=== PATIENT | female | born 1995 | race African-American/Black ===

== ENCOUNTER 2017-03-09 05:59 | Emergency (ER) | payer BC, OTHER ==
[2017-03-09 06:55] LABS: Bilirubin Negative (Negative); Blood, Urine Negative (Negative); Glucose, Urine (Dipstick) Negative (Negative); Ketone, Urine Negative (Negative); Nitrite Negative (Negative); Protein, Urine (Dipstick) Negative (Neg-Trace)
[2017-03-09 06:58] LABS: Bacteria/HPF Rare-Few HPF (None Seen); Hyaline Casts/LPF 0-3 HYALINE CAST LPF (0-3 Hyaline); RBC/HPF 0-3 HPF (0-3); Squamous Epithelial 0-3 HPF (0-3); WBC/HPF 21-50 HPF (0-3)
[2017-03-09 07:31] LABS: #Basophils 0.1 thou/uL (0.0-0.2); #Eosinphils 0.1 thou/uL (0.0-0.7); #Monocytes 0.5 thou/uL (0.11-0.59); #Neutrophils 4.9 thou/uL (1.40-6.50); %Basophils 1.3 % (0.0-1.0); %Lymphocytes 26.1 % (28.0-48.0); %Monocytes 6.2 % (0.0-4.0); Mean Platelet Volume 5.7 fL (7.4-10.4); Red Blood Cell (RBC) Count 4.32 mill/uL (4.00-5.20); White Blood Cell (WBC) Count 7.5 thou/uL (4.8-10.8)
[2017-03-09 08:04] LABS: ALT (SGPT) 9 U/L (8-55); AST (SGOT) 13 U/L (5-34); Alkaline Phosphatase 88 U/L (40-150); Anion Gap 11 mmol/L (10-20); BUN (Urea Nitrogen) 8 mg/dL (7.0-18.7); Bilirubin, Total 1.2 mg/dL (0.2-1.2); Calc. Creatinine Clearance 0 mL/min (70-130); Calcium 9.4 mg/dL (7.8-10.44); Carbon Dioxide 27 mmol/L (22-29); Chloride 106 mmol/L (98-107); Estimated GFR-MDRD Greater than 90; Globulin 3.4 g/dL (2.4-3.5); Protein, Total 7.1 g/dL (6.0-8.3)
--- NOTE | 2017-03-09 09:34 | CT ---
CT ABDOMEN AND PELVIS WITHOUT CONTRAST: Date: 03/09/17 COMPARISON: 06/21/13. HISTORY: Sharp right-sided flank pain for 3 days. TECHNIQUE: Serial axial CT imaging is obtained at 5 mm intervals from lung bases through pubic symphysis without contrast. Coronal reformatted imaging obtained. FINDINGS: The lack of contrast media limits assessment of the viscera, bowel, vascular structures, and for lymp hadenopathy. The imaged lung bases are grossly unremarkable. No free intraperitoneal air is noted. The liver, spleen, gallbladder, pancreas, and adrenal glands are grossly unremarkable. The left kidne y is nonvisualized, consistent with provided history of agenesis. The right kidney is enlarged, likely compensatory in nature, unchanged when compared to the 08/21/13 exam. There is no evidence for obstructive uropathy on the right. The uterus appears quite enlarged, extending into the left lower quadrant, measuring at least 11.0 cm in craniocaudal dimension, a new finding. No evidence for bowel obstruction. The patient reports a history of prior appendectomy. Imaged osseous structures demonstrate no acute findings. There is small volume fluid surrounding the urinary bladder. There is small volume free fluid in the pelvic cul-de-sac. Urinary bladder wall is mildly thickened. There is scoliotic curvature of the imaged thoracolumbar spine. IMPRESSION: 1. Mildly thickened urinary bladder wall with stranding of the adjacent fat. This is suspicious for possible cystitis. No evidence for obstructive uropathy. 2. Enlarged uterus suggesting a state. Results called to Dr. Santiago at 0910 hours on 03/09/17. CODE CR. POS: [facility]
== END 2017-03-09 09:52 | disposition home or self-care (01) ==
LOC: ERS 05:59
DX: N39.0 Urinary tract infection, site not specified (principal); F31.9 Bipolar disorder, unspecified; Z79.899 Other long term (current) drug therapy
CPT/HCPCS: 36415; 74176; 80053; 81003; 81015; 81025; 85025; 87077; 87086

== ENCOUNTER 2017-03-28 15:27 | Emergency (ER) | payer BC, OTHER ==
[2017-03-28 16:15] LABS: #Basophils 0.1 thou/uL (0.0-0.2); #Eosinphils 0.2 thou/uL (0.0-0.7); #Lymphocytes 2.8 thou/uL (1.20-3.40); #Monocytes 0.4 thou/uL (0.11-0.59); #Neutrophils 2.8 thou/uL (1.40-6.50); %Basophils 0.9 % (0.0-1.0); %Eosinophils 2.8 % (0.0-10.0); %Lymphocytes 44.7 % (28.0-48.0); %Monocytes 6.5 % (0.0-4.0); %Neutrophils 45.1 % (31.0-61.0); Hemoglobin 12.6 g/dL (12.0-16.0); Mean Corpuscular HGB CONC 32.3 g/dL (32.0-36.0); Mean Corpuscular Hemoglobin 29.1 pg (25.0-35.0); Mean Corpuscular Volume 90.3 fl (77.0-87.0); Platelet Count 375 thou/uL (130-400); RBC Distribution Width 12.1 % (11.5-14.5); Red Blood Cell (RBC) Count 4.34 mill/uL (4.00-5.20); White Blood Cell (WBC) Count 6.2 thou/uL (4.8-10.8)
[2017-03-28 16:16] LABS: Bilirubin Negative (Negative); Blood, Urine Large (Negative); Clarity CLEAR (Clear); Glucose, Urine (Dipstick) Negative (Negative); Leukocyte Trace (Negative); Nitrite Negative (Negative); Protein, Urine (Dipstick) Negative (Neg-Trace); Specific Gravity, Urine 1.008 (1.002-1.036); Urobilinogen 0.2 mg/dL (0.2-1.0); pH, Urine 6.5 (5.0-9.0)
[2017-03-28 16:21] LABS: Bacteria/HPF None Seen HPF (None Seen); Hyaline Casts/LPF 0-3 HYALINE CAST LPF (0-3 Hyaline); RBC/HPF GREATER THAN 50-TNTC HPF (0-3); Squamous Epithelial 0-3 HPF (0-3); WBC/HPF 0-3 HPF (0-3)
[2017-03-28 16:22] LABS: Pregnancy Test - Urine (BHCG) Negative (Negative); Pregu Control Background? CLEAR/WHITE (CLR/WHITE); Pregu Control Bar Appear? YES (CONTROL BAR); Specific Gravity 1.008 (1.002-1.036)
[2017-03-28 16:36] LABS: ALT (SGPT) 13 U/L (8-55); AST (SGOT) 17 U/L (5-34); Albumin 4.4 g/dL (3.5-5.0); Alkaline Phosphatase 69 U/L (40-150); Anion Gap 12 mmol/L (10-20); BUN (Urea Nitrogen) 8 mg/dL (7.0-18.7); Bilirubin, Total 0.9 mg/dL (0.2-1.2); Calc. Creatinine Clearance 0 mL/min (70-130); Calcium 9.5 mg/dL (7.8-10.44); Carbon Dioxide 23 mmol/L (22-29); Chloride 106 mmol/L (98-107); Estimated GFR-MDRD Greater than 90; Globulin 3.3 g/dL (2.4-3.5); Glucose 69 mg/dL (70-105); Potassium 3.9 mmol/L (3.5-5.1); Protein, Total 7.7 g/dL (6.0-8.3); Sodium 137 mmol/L (136-145)
== END 2017-03-28 17:13 | disposition home or self-care (01) ==
LOC: ERS 15:27
DX: N30.01 Acute cystitis with hematuria (principal); F31.9 Bipolar disorder, unspecified
CPT/HCPCS: 36415; 80053; 81003; 81015; 81025; 85025; 99284

== ENCOUNTER 2017-07-13 17:18 | Emergency (ER) | payer BC, MEDICAID, OTHER ==
[2017-07-13 17:41] LABS: #Basophils 0.1 thou/uL (0.0-0.2); #Eosinphils 0.1 thou/uL (0.0-0.7); #Lymphocytes 2.1 thou/uL (1.20-3.40); #Monocytes 0.6 thou/uL (0.11-0.59); #Neutrophils 2.9 thou/uL (1.40-6.50); %Basophils 1.8 % (0.0-1.0); %Eosinophils 0.9 % (0.0-10.0); %Lymphocytes 36.1 % (21.0-51.0); %Monocytes 10.8 % (0.0-10.0); %Neutrophils 50.4 % (42.0-75.0); Hemoglobin 12.9 g/dL (12.0-16.0); Mean Corpuscular HGB CONC 32.8 g/dL (32.0-36.0); Mean Corpuscular Hemoglobin 28.2 pg (27.0-31.0); Mean Corpuscular Volume 85.9 fl (81.0-99.0); Mean Platelet Volume 6.1 fL (7.4-10.4); Platelet Count 359 thou/uL (130-400); RBC Distribution Width 12.3 % (11.5-14.5); Red Blood Cell (RBC) Count 4.58 mill/uL (4.20-5.40); White Blood Cell (WBC) Count 5.8 thou/uL (4.8-10.8)
[2017-07-13 18:00] LABS: Bilirubin Negative (Negative); Blood, Urine Negative (Negative); Clarity CLEAR (Clear); Glucose, Urine (Dipstick) Negative (Negative); Leukocyte Moderate (Negative); Nitrite Negative (Negative); Protein, Urine (Dipstick) Negative (Neg-Trace); Specific Gravity, Urine 1.017 (1.002-1.036); pH, Urine 6.5 (5.0-9.0)
[2017-07-13 18:01] LABS: ALT (SGPT) 12 U/L (8-55); AST (SGOT) 17 U/L (5-34); Albumin 4.3 g/dL (3.5-5.0); Alkaline Phosphatase 49 U/L (40-150); Anion Gap 11 mmol/L (10-20); BUN (Urea Nitrogen) 8 mg/dL (7.0-18.7); Bilirubin, Total 0.5 mg/dL (0.2-1.2); Calc. Creatinine Clearance 0 mL/min (70-130); Calcium 9.2 mg/dL (7.8-10.44); Carbon Dioxide 23 mmol/L (22-29); Chloride 104 mmol/L (98-107); Estimated GFR-MDRD Greater than 90; Glucose 78 mg/dL (70-105); Lipase 25 U/L (8-78); Potassium 3.9 mmol/L (3.5-5.1); Protein, Total 7.3 g/dL (6.0-8.3); Sodium 134 mmol/L (136-145)
[2017-07-13 18:02] LABS: Pregnancy Test - Urine (BHCG) POSITIVE (Negative); Pregu Control Background? CLEAR/WHITE (CLR/WHITE); Pregu Control Bar Appear? YES (CONTROL BAR); Specific Gravity 1.017 (1.002-1.036)
[2017-07-13 18:03] LABS: Bacteria/HPF None Seen HPF (None Seen); Hyaline Casts/LPF 0-3 HYALINE CAST LPF (0-3 Hyaline); Pathc Cast-AUWi Flag 0.14 (0-2.49); Squamous Epithelial 0-3 HPF (0-3)
== END 2017-07-13 18:43 | disposition home or self-care (01) ==
LOC: ERS 17:18
DX: O23.01 Infections of kidney in pregnancy, first trimester (principal); N12 Tubulo-interstitial nephritis, not specified as acute or chronic; O99.341 Other mental disorders complicating pregnancy, first trimester; F31.9 Bipolar disorder, unspecified; Z79.899 Other long term (current) drug therapy; Z3A.10 10 weeks gestation of pregnancy
CPT/HCPCS: 36415; 80053; 81003; 81015; 81025; 83690; 85025; 87086; 99284

== ENCOUNTER 2017-07-16 10:56 | Inpatient (IN) | payer MEDICAID ==
[2017-07-16 11:33] LABS: Bilirubin Small (Negative); Blood, Urine Negative (Negative); Clarity CLEAR (Clear); Glucose, Urine (Dipstick) Negative (Negative); Leukocyte Small (Negative); Nitrite Negative (Negative); Protein, Urine (Dipstick) Trace mg/dL (Neg-Trace); Specific Gravity, Urine 1.035 (1.002-1.036)
[2017-07-16 11:35] LABS: Bacteria/HPF None Seen HPF (None Seen); Hyaline Casts/LPF 4-6 HYALINE CAST LPF (0-3 Hyaline); Pathc Cast-AUWi Flag 0.72 (0-2.49)
[2017-07-16] MEDS ORDERED: cefTRIAXone\\ROCEPHIN 2 GM VIAL ONE (12:39)
[2017-07-16 13:28] LABS: #Lymphocytes 2.1 thou/uL (1.20-3.40); #Monocytes 0.6 thou/uL (0.11-0.59); #Neutrophils 3.1 thou/uL (1.40-6.50); %Basophils 0.6 % (0.0-1.0); %Eosinophils 0.5 % (0.0-10.0); %Lymphocytes 35.1 % (21.0-51.0); %Monocytes 10.6 % (0.0-10.0); %Neutrophils 53.1 % (42.0-75.0); Hemoglobin 13.2 g/dL (12.0-16.0); Mean Corpuscular HGB CONC 33.8 g/dL (32.0-36.0); Mean Corpuscular Hemoglobin 28.1 pg (27.0-31.0); Mean Corpuscular Volume 83.1 fl (81.0-99.0); Mean Platelet Volume 6.2 fL (7.4-10.4); Platelet Count 338 thou/uL (130-400); RBC Distribution Width 12.2 % (11.5-14.5); Red Blood Cell (RBC) Count 4.69 mill/uL (4.20-5.40); White Blood Cell (WBC) Count 5.9 thou/uL (4.8-10.8)
[2017-07-16 13:47] LABS: ALT (SGPT) 12 U/L (8-55); AST (SGOT) 17 U/L (5-34); Albumin 4.4 g/dL (3.5-5.0); Alkaline Phosphatase 50 U/L (40-150); Anion Gap 15 mmol/L (10-20); BUN (Urea Nitrogen) 7 mg/dL (7.0-18.7); Bilirubin, Total 0.8 mg/dL (0.2-1.2); Calc. Creatinine Clearance 0 mL/min (70-130); Calcium 9.3 mg/dL (7.8-10.44); Carbon Dioxide 20 mmol/L (22-29); Chloride 103 mmol/L (98-107); Estimated GFR-MDRD Greater than 90; Globulin 3.5 g/dL (2.4-3.5); Glucose 70 mg/dL (70-105); Potassium 3.9 mmol/L (3.5-5.1); Protein, Total 7.9 g/dL (6.0-8.3); Sodium 134 mmol/L (136-145)
[2017-07-16] MEDS ORDERED: Morphine 4 MG/ML VIAL ONE (13:49)
--- NOTE | 2017-07-16 14:56 | PDOC.FPRHP ---
- History of Present Illness Chief Complaint: right flank pain History of Present Illness: Mary Alcantar is a 22 year old F at 9.5 weeks based on 1T US performed today, 07/16/17 at the [facility]. She presented to [facility] today with a two week history of right flank pain. She has a history of congenital absence of left kidney and hx of recurrent kidney infections in the past, last one was one year ago. She states that the pain she is having currently feels just like the times she has had infections in the past. She was seen in the ED 3 days ago, where she was found to have a UTI and also found to be . She was started on Keflex and zofran odt and discharged from the ED. Patient states that the flank pain has worsened since being discharged from the ED and the associated nausea and vomiting has continued. Denies objective fevers, but endorses chills. She found out she was at the ED visit 3 days ago and had an ultrasound performed today which confirmed a 9.5 week intrauterine based on US. Patient's LMP is unreliable. She denies any dysuria, vaginal discharge, bleeding, or loss of fluid. States that she has been compliant with her medications for the last 3 days. ED Course: In the ED, she received one L NS, morphine for pain, and ceftriaxone. Blood and urine cultures were drawn. - Allergies/Adverse Reactions Allergies Allergy/AdvReac Type Severity Reaction Status Date / Time No Known Allergies Allergy Verified 05/23/13 14:21 - Home Medications Comments: Patient denies taking any medications with the exception of the keflex and the zofran odt that she was given 3 days ago in the ED. - History PMHx: Bipolar disorder, depression, congenital absence of L kidney Past Obstetric Hx: #1-resulted in 24 week miscarriage #2-resulted in 6 week miscarriage #3-resulted in term 39 week vaginal delivery, patient had cervical cerclage placed during #4-current PSHx: Cervical cerclage in 2017, Appendectomy, cyst removal of breast FHx: HTN, HLD Social: Denies smoking, drug, alcohol use - Review of Systems General: reports: fever/chills, weight/appetite/sleep changes. denies: fatigue Eyes: denies: eye pain, vision changes ENT: denies: nasal congestion, rhinorrhea Respiratory: denies: cough, congestion, shortness of breath Cardiovascular: denies: chest pain, palpitation, edema, paroxysmal nocturnal dyspnea, orthopnea Gastrointestinal: reports: nausea, vomiting, other (right flank pain). denies: diarrhea, constipation, abdominal pain, GI bleeding Genitourinary: denies: dysuria, polyuria, discharge Skin: denies: rashes, lesions, jaundice Musculoskeletal: denies: pain, tenderness, stiffness, swelling, arthritis/ arthralgias Neurological: denies: numbness, syncope, seizure Psychological: denies: anxiety, depression - Vital signs BP: 108/52 HR: 72 RR: 18 Tmax: 98.2 Pox: 100% on RA Wt: 82.55 kg - Physical Exam Constitutional: NAD, awake, alert and oriented, well developed HEENT: normocephalic and atraumatic, PERRLA, EOMI, conjunctiva clear (pale conjunctiva), no scleral icterus, grossly normal vision, TM's clear and intact, grossly normal hearing, oropharynx clear, good dention, other (dry mucous membranes) Neck: supple, FROM, trachea midline, no LAD, no JVD Chest: no-tender to palpation, no lesions Heart: RRR, normal S1/S2, no murmurs/rubs/gallops Lungs: CTAB, no respiratory distress, good air movement, no rales/rhonchi, no wheezing Abdomen: soft, non-tender, bowel sounds present, no masses/distention, other ( right CVA tenderness to palpation) Musculoskeletal: normal structure, normal tone, ROM grossly normal Neurological: no focal deficit, CN II-XII intact, normal sensation Skin: no rash/lesions, good turgor, other (prolongued capillary refill) Heme/Lymphatic: no unusual bruising or bleeding, no purpura Psychiatric: normal mood and affect, good judgment and insight, intact recent and remote memory FMR H&P: Results - Labs Result Diagrams: 07/16/17 13:15 07/16/17 13:15 Lab results: WBC 5.9 thou/uL (4.8-10.8) 07/16/17 13:15 Hgb 13.2 g/dL (12.0-16.0) 07/16/17 13:15 Hct 39.0 % (36.0-47.0) 07/16/17 13:15 MCV 83.1 fl (81.0-99.0) 07/16/17 13:15 Plt Count 338 thou/uL (130-400) 07/16/17 13:15 Neutrophils % 53.1 % (42.0-75.0) 07/16/17 13:15 Sodium 134 mmol/L (136-145) L 07/16/17 13:15 Potassium 3.9 mmol/L (3.5-5.1) 07/16/17 13:15 Chloride 103 mmol/L (98-107) 07/16/17 13:15 Carbon Dioxide 20 mmol/L (22-29) L 07/16/17 13:15 BUN 7 mg/dL (7.0-18.7) 07/16/17 13:15 Creatinine 0.69 mg/dL (0.6-1.1) 07/16/17 13:15 Glucose 70 mg/dL (70-105) 07/16/17 13:15 Lactic Acid 1.1 mmol/L (0.5-2.2) 07/16/17 13:15 Calcium 9.3 mg/dL (7.8-10.44) 07/16/17 13:15 Total Bilirubin 0.8 mg/dL (0.2-1.2) 07/16/17 13:15 AST 17 U/L (5-34) 07/16/17 13:15 ALT 12 U/L (8-55) 07/16/17 13:15 Alkaline Phosphatase 50 U/L (40-150) 07/16/17 13:15 Serum Total Protein 7.9 g/dL (6.0-8.3) 07/16/17 13:15 Albumin 4.4 g/dL (3.5-5.0) 07/16/17 13:15 Urine Ketones Trace mg/dL (Negative) H 07/16/17 11:07 Urine Blood Negative (Negative) 07/16/17 11:07 Urine Nitrite Negative (Negative) 07/16/17 11:07 Ur Leukocyte Esterase Small (Negative) H 07/16/17 11:07 Urine RBC 4-6 HPF (0-3) 07/16/17 11:07 Urine WBC 11-20 HPF (0-3) H 07/16/17 11:07 Ur Squamous Epith Cells 4-6 HPF (0-3) H 07/16/17 11:07 Urine Bacteria None Seen HPF (None Seen) 07/16/17 11:07 FMR H&P: A/P - Problem List (1) Pyelonephritis affecting in first trimester Current Visit: Yes Status: Acute Code(s): O23.01 - INFECTIONS OF KIDNEY IN , FIRST TRIMESTER (2) Moderate dehydration Current Visit: Yes Status: Acute Code(s): E86.0 - DEHYDRATION (3) First trimester Current Visit: Yes Status: Acute Code(s): Z34.90 - ENCNTR FOR SUPRVSN OF NORMAL , UNSP, UNSP TRIMESTER (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 UA showed 11-20 WBCs, Small LE, no bacteria. WBC count 5. - Urine culture 3 days ago from ED showed no growth. Urine culture from today pending. Blood culture pending as well. - Failed outpatient treatment with keflex. - Hx of congenital absence of L kidney. Renal function is not impaired. - Ordered US of right kidney. - Starting IV Ceftriaxone - IVFs, NS @ 125 ml/hr. Strict I/Os. (2) Moderate Dehydration: Dry MM, pale conjunctiva, prolonged cap refill - Likely 2/2 #1 - Bolused 1 L NS in the ED - Will bolus 1 L LR now. - Start Maintenance fluids, NS @ 125 ml/hr (3) sIUP: - positive test 3 days ago in ED - TAMP US confirmed 9.5 wk intrauterine day of admission - hx of multiple miscarriages (4) Hx of Multiple miscarriages: - patient of Dr. Harley's at the [facility] - will notify Dr. Harley of case, patient will likely need close follow up OP - no hx of bleeding/clotting disorder FMR H&P: Upper Level - Pertinent history 22 y/o F at 9.5 wks based on 9.5 wk sono not consistent with LMP presents for evaluation of right flank pain and N/V. Pt seen a few days ago in the ER with similar sxs and dx w/ pyelonephritis. Pt has a congenital absence of the left kidney and hx of multiple episodes of pyelo in the past w/ last episode 1 year ago. Pt states that her right flank pain worsened w/ continued N/ V which prompted return ER visit. Denies any fever, dysuria, frequency, urgency. Endorses chills. Pt given zofran at prior ER visit which she states she has been taking every 4 hours for her nausea. - Pertinent findings GEN: NAD, resting comfortably HEENT: normocephalic, atraumatic. Dry MM Cards: RRR, no murmur Pulm: CTA-BL, no rales, wheezes or rhonci GI: NTTP, non-distended, BS present. + Right CVA tenderness Vasc: Prolonged cap refill >2 sec Ext: Moves all 4 ext equally UCX obtained at prior ER visit growing normal urogenital barbra No leukocytosis Afebrile + LE and + WBC on UA - Plan Date/Time: 07/16/17 [id number] ITayler MD, have evaluated this patient and agree with findings/plan as outlined by pharmacy intern resident. Pertinent changes/additions are listed here. 22 y/o at 9.5 wks w/: 1) Acute pyelonephritis of the right kidney complicating 1st trimester - Will start patient on IV Rocephin - UCx pending - Hx of congential absence of the left kidney. Prior Cx negative. Will obtain Renal U/S to further eval for other causes of sxs - IVF w/ LR - Monitor UOP - Diclegis and PRN promethazine for nausea control 2) Moderate Dehydration 2/2 #1 - Will give another bolus of IVF - LR at maintenance thereafter w/ strict I/O's 3) Congenital absence of the left kidney - Will obtain R-renal U/S in the setting of flank pain w/ negative initial UCx from recent ER visit Attending Addendum - Attending Addendum Date/Time: 07/16/17 [id number] I personally evaluated the patient and discussed the management with Dr. Mosley on 07/16/17. I agree with the History, Examination, Assessment and Plan documented above with any addition or exceptions noted below. Patient with pyelo during . Improved after bolus of NS and Rocephin started. Results of US pending. Likely will need to be treated with ppx antibiotics during this entire . Also, adjusted nausea medications for scheduled doxylamine/pyridoxine plus phenergan prn.
[2017-07-16] MEDS ORDERED: Doxylamine 25 MG TAB PO PRN (15:47)
[2017-07-16] MEDS ORDERED: Acetaminophen 325 MG TAB PO PRN (15:47)
[2017-07-16] MEDS ORDERED: Lactated Ringer's 1,000 ML IV SCH (15:47)
[2017-07-16] MEDS ORDERED: Sodium Chloride 0.9% 30 ML ONE (16:14)
[2017-07-16] MEDS ORDERED: Promethazine 25 MG TAB PO PRN ×2 (16:24)
[2017-07-16 16:34] VITALS: BMI 31.2
[2017-07-16] MEDS: pyridOXINE 50 MG (B6) TAB PO SCH ×4 (16:51→22:49)
--- NOTE | 2017-07-16 16:56 | ULT ---
UNILATERAL RIGHT RENAL ULTRASOUND LIMITED 07/16/17 HISTORY: Right flank pain. Congenital unilateral right kidney and absent left kidney by history. The right kidney measures 13.0 x 5.4 x 5.8 cm. No evidence for significant renal hydronephrosis. A we ak right ureteral jet was seen. Incidentally noted is an intrauterine with heart rate of 189 beats per minute. IMPRESSION: No evidence for right renal hydronephrosis. Intrauterine with a heart rate of 189 yesi ts per minute. The left flank and retroperitoneum was not evaluated. POS: [facility]
[2017-07-16] MEDS ORDERED: Doxylamine 25 MG TAB PO SCH (17:00)
[2017-07-16] MEDS: Sodium Chloride 0.9% 1,000 ML IV SCH ×2 (18:29→22:54)
[2017-07-16] MEDS ORDERED: pyridOXINE 50 MG (B6) TAB PO SCH ×2 (21:00)
[2017-07-17 05:31] LABS: #Lymphocytes 2.1 thou/uL (1.20-3.40); #Monocytes 0.6 thou/uL (0.11-0.59); #Neutrophils 2.2 thou/uL (1.40-6.50); %Eosinophils 0.8 % (0.0-10.0); %Lymphocytes 42.5 % (21.0-51.0); %Monocytes 11.3 % (0.0-10.0); %Neutrophils 45.4 % (42.0-75.0); Hemoglobin 11.7 g/dL (12.0-16.0); Mean Corpuscular HGB CONC 33.4 g/dL (32.0-36.0); Mean Corpuscular Hemoglobin 27.7 pg (27.0-31.0); Mean Corpuscular Volume 82.9 fl (81.0-99.0); Mean Platelet Volume 6.2 fL (7.4-10.4); Platelet Count 305 thou/uL (130-400); RBC Distribution Width 12.2 % (11.5-14.5); Red Blood Cell (RBC) Count 4.22 mill/uL (4.20-5.40); White Blood Cell (WBC) Count 4.8 thou/uL (4.8-10.8)
[2017-07-17 05:43] LABS: Anion Gap 10 mmol/L (10-20); BUN (Urea Nitrogen) 7 mg/dL (7.0-18.7); Calc. Creatinine Clearance 200 mL/min (70-130); Calcium 8.7 mg/dL (7.8-10.44); Carbon Dioxide 20 mmol/L (22-29); Chloride 108 mmol/L (98-107); Estimated GFR-MDRD Greater than 90; Glucose 77 mg/dL (70-105); Potassium 3.7 mmol/L (3.5-5.1); Sodium 134 mmol/L (136-145)
[2017-07-17 07:45] VITALS: BP 107/59; TEMP 98.1
[2017-07-17] MEDS: pyridOXINE 50 MG (B6) TAB PO SCH ×2 (08:42)
[2017-07-17] MEDS: Sodium Chloride 0.9% 1,000 ML IV SCH (08:43)
[2017-07-17] MEDS ORDERED: Prenatal Vitamin 1 TAB PO SCH (09:00)
[2017-07-17] MEDS ORDERED: Doxylamine 25 MG TAB PO SCH (09:00)
--- NOTE | 2017-07-17 09:37 | PDOC.FM ---
- Subjective Subjective: Mary Alcantar seen at bedside this morning. She did well overnight. He flank pain has completely resolved overnight. She experienced no fevers, chills. Denies any dysuria, chest pain, dyspnea, n/v. States that she is feeling much better. - Objective MAR Reviewed: Yes Vital Signs & Weight: Vital Signs (12 hours) Temp Pulse Resp BP Pulse Ox 07/17/17 08:52 98.1 F 88 17 99 07/17/17 07:44 98.1 F 88 17 107/59 L 99 07/17/17 03:50 98.9 F 81 16 114/68 07/16/17 23:30 98.4 F 79 16 126/58 L Weight Weight 82.55 kg I&O: 07/16/17 07/17/17 07/18/17 06:59 06:59 06:59 Intake Total 1798 Output Total 1650 Balance 148 Result Diagrams: 07/17/17 04:35 07/17/17 04:35 <Kamlesh Mosley - Last Filed: 07/17/17 09:35> - Objective Vital Signs & Weight: Vital Signs (12 hours) Temp Pulse Resp BP Pulse Ox 07/17/17 08:52 98.1 F 88 17 99 07/17/17 07:44 98.1 F 88 17 107/59 L 99 07/17/17 03:50 98.9 F 81 16 114/68 Weight Weight 82.55 kg I&O: 07/16/17 07/17/17 07/18/17 06:59 06:59 06:59 Intake Total 1798 Output Total 1650 Balance 148 Result Diagrams: 07/17/17 04:35 07/17/17 04:35 <Chrystal Andres - Last Filed: 07/17/17 11:58> Phys Exam - Physical Examination Constitutional: NAD HEENT: moist MMs, sclera anicteric Neck: no JVD, supple, full ROM Respiratory: no wheezing, no rales, no rhonchi, clear to auscultation bilateral Cardiovascular: RRR, no significant murmur, no rub Gastrointestinal: soft, non-tender, no distention, positive bowel sounds no CVA tenderness today Musculoskeletal: no edema, pulses present Neurological: non-focal, normal sensation, moves all 4 limbs Psychiatric: normal affect, A&O x 3 Skin: no rash, normal turgor, cap refill <2 seconds <Kamlesh Mosley - Last Filed: 07/17/17 09:35> Dx/Plan (1) Pyelonephritis affecting in first trimester Code(s): O23.01 - INFECTIONS OF KIDNEY IN , FIRST TRIMESTER Status: Acute (2) Moderate dehydration Code(s): E86.0 - DEHYDRATION Status: Acute (3) First trimester Code(s): Z34.90 - ENCNTR FOR SUPRVSN OF NORMAL , UNSP, UNSP TRIMESTER Status: Acute (4) History of multiple miscarriages Code(s): N96 - RECURRENT LOSS Status: Chronic - Plan Plan: (1) Pyelonephritis affecting first trimester intrauterine : Right flank pain, chills, pyuria - Admit to women's/plodding machine operator. UA showed 11-20 WBCs, Small LE, no bacteria. WBC count 5. - Urine culture 3 days ago from ED showed no growth. Urine culture from today pending. Blood culture pending as well. - Failed outpatient treatment with keflex. - Hx of congenital absence of L kidney. Renal function is not impaired. - Right kidney US was normal - symptoms completely resolved today, no fever - D/C patient to complete 10 day course of amoxicillin outpatient with close follow up at [facility]. (2) Moderate Dehydration: Dry MM, pale conjunctiva, prolonged cap refill - Likely 2/2 #1 - Resolved with fluid resuscitation (3) sIUP: - positive test 3 days ago in ED - TAMP US confirmed 9.5 wk intrauterine day of admission - hx of multiple miscarriages (4) Hx of Multiple miscarriages: - patient of Dr. Harley's at the [facility] - will notify Dr. Harley of case, nurse to set up appt with patient on thursday on next week. - no hx of bleeding/clotting disorder <Kamlesh Mosley - Last Filed: 07/17/17 09:35> Attending Addendum - Attending Addendum Date/Time: 07/17/17 [id number] I personally evaluated the patient and discussed the management with Dr. Mosley I agree with the History, Examination, Assessment and Plan documented above with any addition or exceptions noted below. Pyelonephritis- urine cx 3 days ago negative. Patient today without flank pain , fever, leukocytosis. Will d/c on Amoxicillin for 10 day course and f/u on culture to ensure sensitivity. Clinically stable for d/c IUP at 9 6/7 weeks- f/u with [facility] <Chrystal Andres - Last Filed: 07/17/17 11:58>
[2017-07-17] MEDS ORDERED: cefTRIAXone\\ROCEPHIN 1 GM, Syringe 0.4 ML in Sterile Water 9.6 ML SLOW IVP SCH (13:00)
[2017-07-17] MEDS ORDERED: cefTRIAXone\\ROCEPHIN 1 GM in Sodium Chloride 0.9% 100 ML IVPB SCH (13:00)
[2017-07-17] MEDS ORDERED: AMOXicillin 250 MG CAP PO SCH (21:00)
== END 2017-07-17 10:43 | disposition home or self-care (01) | DRG 781 ==
LOC: ERS 10:56 → 3SE 14:35 → OBSVTOIN 14:35
PROVIDERS: ADMIT Family Medicine; ATTEND Family Medicine
DX: O23.01 Infections of kidney in pregnancy, first trimester (principal); Q60.0 Renal agenesis, unilateral; N10 Acute pyelonephritis; F31.9 Bipolar disorder, unspecified; F41.9 Anxiety disorder, unspecified; O26.21 Pregnancy care for patient with recurrent pregnancy loss, first trimester; E86.0 Dehydration; O26.891 Other specified pregnancy related conditions, first trimester; Z3A.09 9 weeks gestation of pregnancy
CPT/HCPCS: 36415; 76775; 80048; 80053; 81003; 81015; 81025; 83605; 83690; 85025; 87040; 87086; 96365; 96366; 96375; 99284; A4216; J0696; J2270; J7050

== ENCOUNTER 2017-07-28 09:53 | Emergency (ER) | payer MEDICAID, OTHER ==
[2017-07-28] MEDS ORDERED: Acetaminophen 500 MG TAB ONE (11:00)
[2017-07-28] MEDS ORDERED: Acetaminophen 325 MG/10.15 ML UDCUP ONE (11:00)
== END 2017-07-28 11:05 | disposition home or self-care (01) ==
LOC: ERS 09:53
DX: O99.711 Diseases of the skin and subcutaneous tissue complicating pregnancy, first trimester (principal); L03.112 Cellulitis of left axilla; O99.341 Other mental disorders complicating pregnancy, first trimester; F31.9 Bipolar disorder, unspecified; Z79.899 Other long term (current) drug therapy; Z3A.10 10 weeks gestation of pregnancy
CPT/HCPCS: 99283

== ENCOUNTER 2017-08-02 10:37 | Emergency (ER) | payer OTHER | END 2017-08-02 11:34 | disposition home or self-care (01) | LOC: ERS 10:37 | DX: O99.511 Diseases of the respiratory system complicating pregnancy, first trimester (principal); J01.90 Acute sinusitis, unspecified; O99.341 Other mental disorders complicating pregnancy, first trimester; F31.9 Bipolar disorder, unspecified; Z3A.12 12 weeks gestation of pregnancy | CPT/HCPCS: 99283 ==

== ENCOUNTER 2017-08-05 20:42 | Emergency (ER) | payer MEDICAID, OTHER ==
[2017-08-05] MEDS ORDERED: Metoclopramide HCl 10 MG/2 ML VIAL ONE (22:23)
[2017-08-05] MEDS ORDERED: diphenhydrAMINE 50 MG/ML VIAL ONE (22:23)
[2017-08-05 22:46] LABS: #Lymphocytes 1.4 thou/uL (1.20-3.40); #Monocytes 0.3 thou/uL (0.11-0.59); %Basophils 0.8 % (0.0-1.0); %Eosinophils 0.1 % (0.0-10.0); %Lymphocytes 29.1 % (21.0-51.0); %Monocytes 5.9 % (0.0-10.0); %Neutrophils 64.1 % (42.0-75.0); Hemoglobin 11.4 g/dL (12.0-16.0); Mean Corpuscular Volume 82.3 fl (81.0-99.0); Mean Platelet Volume 6.2 fL (7.4-10.4); Platelet Count 335 thou/uL (130-400); RBC Distribution Width 11.9 % (11.5-14.5); Red Blood Cell (RBC) Count 4.09 mill/uL (4.20-5.40); White Blood Cell (WBC) Count 4.7 thou/uL (4.8-10.8)
[2017-08-05 22:55] LABS: Bilirubin Negative (Negative); Blood, Urine Negative (Negative); Clarity CLEAR (Clear); Glucose, Urine (Dipstick) Negative (Negative); Leukocyte Small (Negative); Nitrite Negative (Negative); Protein, Urine (Dipstick) Negative (Neg-Trace); Specific Gravity, Urine 1.023 (1.002-1.036)
[2017-08-05 22:58] LABS: Bacteria/HPF None Seen HPF (None Seen); Hyaline Casts/LPF 0-3 HYALINE CAST LPF (0-3 Hyaline); RBC/HPF 0-3 HPF (0-3); Squamous Epithelial 0-3 HPF (0-3)
[2017-08-05 23:09] LABS: ALT (SGPT) 11 U/L (8-55); AST (SGOT) 19 U/L (5-34); Albumin 3.8 g/dL (3.5-5.0); Alkaline Phosphatase 43 U/L (40-150); Anion Gap 13 mmol/L (10-20); BUN (Urea Nitrogen) 5 mg/dL (7.0-18.7); Bilirubin, Total 0.7 mg/dL (0.2-1.2); Calc. Creatinine Clearance 0 mL/min (70-130); Calcium 8.9 mg/dL (7.8-10.44); Carbon Dioxide 22 mmol/L (22-29); Chloride 100 mmol/L (98-107); Estimated GFR-MDRD Greater than 90; Globulin 3.5 g/dL (2.4-3.5); Glucose 84 mg/dL (70-105); Potassium 3.4 mmol/L (3.5-5.1); Protein, Total 7.3 g/dL (6.0-8.3); Sodium 132 mmol/L (136-145)
[2017-08-05] MEDS ORDERED: Acetaminophen 500 MG TAB ONE (23:53)
[2017-08-06 22:50] LABS: Chlamydia by PCR Not Detected (NotDetected); GC by PCR Not Detected (NotDetected)
== END 2017-08-06 00:19 | disposition home or self-care (01) ==
LOC: ERS 20:42
DX: J32.9 Chronic sinusitis, unspecified (principal); F32.9 Major depressive disorder, single episode, unspecified
CPT/HCPCS: 80053; 81003; 81015; 85025; 87086; 87480; 87491; 87510; 87591; 87660; 96365; 96375; J1200; J2765

== ENCOUNTER 2017-10-07 13:43 | Emergency (ER) | payer BC, MEDICARE, OTHER ==
[2017-10-07 14:13] LABS: Bilirubin Negative (Negative); Blood, Urine Negative (Negative); Clarity CLOUDY (Clear); Glucose, Urine (Dipstick) Negative (Negative); Leukocyte Large (Negative); Nitrite Negative (Negative); Protein, Urine (Dipstick) Negative (Neg-Trace); Specific Gravity, Urine 1.023 (1.002-1.036)
[2017-10-07 14:17] LABS: #Eosinphils 0.1 thou/uL (0.0-0.7); #Lymphocytes 1.6 thou/uL (1.20-3.40); #Monocytes 0.4 thou/uL (0.11-0.59); #Neutrophils 3.7 thou/uL (1.40-6.50); %Basophils 0.5 % (0.0-1.0); %Eosinophils 1.2 % (0.0-10.0); %Lymphocytes 27.8 % (21.0-51.0); %Monocytes 6.4 % (0.0-10.0); %Neutrophils 64.2 % (42.0-75.0); Mean Corpuscular HGB CONC 34.6 g/dL (32.0-36.0); Mean Corpuscular Hemoglobin 29.7 pg (27.0-31.0); Mean Corpuscular Volume 85.8 fL (78.0-98.0); Mean Platelet Volume 6.5 fL (7.4-10.4); Platelet Count 338 thou/uL (130-400); RBC Distribution Width 13.2 % (11.5-14.5); White Blood Cell (WBC) Count 5.8 thou/uL (4.8-10.8)
[2017-10-07 14:21] LABS: Bacteria/HPF None Seen HPF (None Seen); Hyaline Casts/LPF 0-3 HYALINE CAST LPF (0-3 Hyaline); Pathc Cast-AUWi Flag 0.58 (0-2.49); WBC/HPF 21-50 HPF (0-3)
[2017-10-07 14:41] LABS: ALT (SGPT) Less than 7 U/L (8-55); AST (SGOT) 10 U/L (5-34); Albumin 3.6 g/dL (3.5-5.0); Alkaline Phosphatase 47 U/L (40-150); Anion Gap 13 mmol/L (10-20); BUN (Urea Nitrogen) 6 mg/dL (7.0-18.7); Bilirubin, Total 0.9 mg/dL (0.2-1.2); Calc. Creatinine Clearance 0 mL/min (70-130); Calcium 8.7 mg/dL (7.8-10.44); Carbon Dioxide 17 mmol/L (22-29); Chloride 109 mmol/L (98-107); Estimated GFR-MDRD Greater than 90; Globulin 2.9 g/dL (2.4-3.5); Glucose 88 mg/dL (70-105); Potassium 3.6 mmol/L (3.5-5.1); Protein, Total 6.5 g/dL (6.0-8.3); Sodium 135 mmol/L (136-145)
[2017-10-07] MEDS ORDERED: cefTRIAXone\\ROCEPHIN 1 GM VIAL ONE (15:02)
[2017-10-07] MEDS ORDERED: Acetaminophen 500 MG TAB ONE (15:38)
== END 2017-10-07 16:51 | disposition home or self-care (01) ==
LOC: ERS 13:43
DX: O23.42 Unspecified infection of urinary tract in pregnancy, second trimester (principal); O99.342 Other mental disorders complicating pregnancy, second trimester; F32.9 Major depressive disorder, single episode, unspecified; Z79.899 Other long term (current) drug therapy; Z3A.16 16 weeks gestation of pregnancy
CPT/HCPCS: 36415; 80053; 81003; 81015; 85025; 96365; J0696

== ENCOUNTER 2017-11-18 22:57 | Observation (INO) | payer MEDICARE ==
--- NOTE | 2017-11-18 23:31 | PDOC.LDHP ---
Labor and Delivery H&P Chief complaint: other (UTI complaints) HPI: 22 y/o at 26w4d, patient of Dr. Weeks at [facility], presents with flnak pain and difficulty with urination today. Has a history of pyelonephritis this (multiple episodes prior) with congential absence of one kidney. Is not on any medications for prophylaxis. Denies VB, LOF, ctx or decreased FM. ROS neg for HEENT, cv, pulm, gi, gu, neuro, psych, skin, musculoskeletal or constitutional symptoms other than mentioned above. OB History Details: 1 prior 24 week delivery secondary to incompetent cervix 1 prior SAB 1 prior term with cerclage placement Current complications: other (pyelonephritis, cerclage placement) Past Medical History: Congenital absence of left kidney, bipolar disorder Current medications: pre- vitamins, other (Abilify) Previous surgical history: other (cerclage placement) Allergies/Adverse Reactions: Allergies Allergy/AdvReac Type Severity Reaction Status Date / Time No Known Allergies Allergy Verified 11/18/17 23:48 Social history: none - Physical Exam Vital signs reviewed and normal: yes General: NAD, resting Lungs: nonlabored breathing Abdomen: gravid (NTTP, back with mild right sided CVA tenderness) Extremeties: no edema FHT: category 1 (150s, mod variability, no accels, no decels) Hockinson contractions every: None - Assessment 22 y/o at 26w4d with early pyelonephritis given UA results, CVA tenderness, and history of pyelo with single kidney. - Plan Plan: observation in L&D -: Will place on obs for early pyelonephritis and start rocephin with IV fluids. NSTs q shift. CBC and CMP pending.
[2017-11-18] MEDS ORDERED: Acetaminophen 500 MG TAB PO SCH (23:45)
[2017-11-18] MEDS ORDERED: Cyclobenzaprine 10 MG TAB PO SCH (23:45)
[2017-11-19] LABS: Bilirubin Negative (Negative); Blood, Urine Negative (Negative); Clarity CLEAR (Clear); Glucose, Urine (Dipstick) Negative (Negative); Leukocyte Moderate (Negative); Nitrite Negative (Negative); Protein, Urine (Dipstick) Negative (Neg-Trace); Specific Gravity, Urine 1.021 (1.002-1.036); pH, Urine 7.5 (5.0-9.0)
[2017-11-19 00:03] LABS: Bacteria/HPF None Seen HPF (None Seen); Hyaline Casts/LPF 0-3 HYALINE CAST LPF (0-3 Hyaline); Pathc Cast-AUWi Flag 0.58 (0-2.49); RBC/HPF 0-3 HPF (0-3)
[2017-11-19 00:13] LABS: Renal Epithelial None Seen HPF (0-3); Transitional Epithelial NONE SEEN HPF (0-3)
[2017-11-19] MEDS ORDERED: Lactated Ringer's 1,000 ML IV SCH ×2 (00:15→00:30)
[2017-11-19] MEDS ORDERED: Butorphanol Tartrate 1 MG/ML VIAL SLOW IVP PRN (00:17)
[2017-11-19] MEDS ORDERED: Promethazine HCl 25 MG/ML VIAL IM PRN (00:17)
[2017-11-19] MEDS ORDERED: Ondansetron HCl/PF 4 MG/2 ML Vial IVP PRN (00:17)
[2017-11-19] MEDS ORDERED: Acetaminophen 500 MG TAB PO PRN (00:19)
[2017-11-19] MEDS ORDERED: Sodium Chloride 0.9% 1,000 ML IV SCH (00:30)
[2017-11-19] MEDS ORDERED: cefTRIAXone\\ROCEPHIN 2 GM in Sodium Chloride 0.9% 100 ML IVPB SCH (00:30)
[2017-11-19 01:10] LABS: #Eosinphils 0.1 thou/uL (0.0-0.7); #Lymphocytes 2.3 thou/uL (1.20-3.40); #Monocytes 0.5 thou/uL (0.11-0.59); #Neutrophils 4.3 thou/uL (1.40-6.50); %Basophils 0.7 % (0.0-1.0); %Eosinophils 1.4 % (0.0-10.0); %Lymphocytes 32.4 % (21.0-51.0); %Monocytes 6.5 % (0.0-10.0); %Neutrophils 59.1 % (42.0-75.0); Hemoglobin 10.9 g/dL (12.0-16.0); Mean Corpuscular HGB CONC 35.5 g/dL (32.0-36.0); Mean Corpuscular Hemoglobin 30.4 pg (27.0-31.0); Mean Corpuscular Volume 85.6 fL (78.0-98.0); Mean Platelet Volume 6.6 fL (7.4-10.4); Platelet Count 304 thou/uL (130-400); RBC Distribution Width 12.4 % (11.5-14.5); White Blood Cell (WBC) Count 7.2 thou/uL (4.8-10.8)
[2017-11-19 01:31] LABS: ALT (SGPT) 7 U/L (8-55); AST (SGOT) 14 U/L (5-34); Albumin 3.4 g/dL (3.5-5.0); Alkaline Phosphatase 56 U/L (40-150); Anion Gap 14 mmol/L (10-20); BUN (Urea Nitrogen) 9 mg/dL (7.0-18.7); Bilirubin, Total 0.6 mg/dL (0.2-1.2); Calc. Creatinine Clearance 0 mL/min (70-130); Calcium 8.1 mg/dL (7.8-10.44); Carbon Dioxide 19 mmol/L (22-29); Chloride 106 mmol/L (98-107); Estimated GFR-MDRD Greater than 90; Glucose 84 mg/dL (70-105); Protein, Total 6.4 g/dL (6.0-8.3); Sodium 135 mmol/L (136-145)
[2017-11-19 08:43] VITALS: BP 106/63; TEMP 98.2
--- NOTE | 2017-11-19 09:05 | DIS ---
DATE OF ADMISSION: 11/19/2017 DATE OF DISCHARGE: 11/19/2017 DIAGNOSES: 1. Complicated urinary tract infection versus early pyelonephritis. 2. Congenital absence of left kidney. PROCEDURE: IV antibiotics. HOSPITAL COURSE: The patient presented to OB triage with complaints of UTI symptoms and back pain. She has a history of multiple kidney infections and her UA returned with a UTI again. Given her clin ical exam and history with only one kidney, the decision was made to observe her overnight for IV ant ibiotics and IV fluids. In the morning, she was feeling much better with no complaints. She can be discharged home with a course of oral antibiotics. FOLLOWUP: With Dr. Weeks by early next week. DIET: Regular. ACTIVITIES: As tolerated. PRESCRIPTIONS: Keflex 500 mg b.i.d. for 7 days, followed by bedtime for the remainder of f or suppression. INSTRUCTIONS: Take medications as indicated. Call your doctor if symptoms do not resolve for fever or other concerns.
== END 2017-11-19 10:00 | disposition home health service (06) ==
LOC: L&D/OP 22:57 → 3SE 11-19 01:44
PROVIDERS: ADMIT Obstetrics & Gynecology; ATTEND Obstetrics & Gynecology
DX: O23.02 Infections of kidney in pregnancy, second trimester (principal); O99.342 Other mental disorders complicating pregnancy, second trimester; F31.9 Bipolar disorder, unspecified; O99.89 Other specified diseases and conditions complicating pregnancy, childbirth and the puerperium; Q60.0 Renal agenesis, unilateral; Z87.440 Personal history of urinary (tract) infections; Z79.899 Other long term (current) drug therapy; Z3A.26 26 weeks gestation of pregnancy
CPT/HCPCS: 51701; 80053; 81001; 85025; 87086; 96361; 96365; G0378; 36415; 99285; J0696; J7050

== ENCOUNTER 2017-12-27 22:39 | Emergency (ER) | payer MEDICARE, OTHER | END 2017-12-27 23:46 | disposition home or self-care (01) | LOC: ERS 22:39 | DX: O99.513 Diseases of the respiratory system complicating pregnancy, third trimester (principal); J06.9 Acute upper respiratory infection, unspecified; O99.343 Other mental disorders complicating pregnancy, third trimester; F31.9 Bipolar disorder, unspecified; Z3A.32 32 weeks gestation of pregnancy | CPT/HCPCS: 87804; 99283 ==

== ENCOUNTER 2018-02-12 21:53 | Emergency (ER) | payer MEDICARE, OTHER ==
[2018-02-12 23:00] LABS: Mean Corpuscular HGB CONC 31.9 g/dL (32.0-36.0); Mean Corpuscular Hemoglobin 27.2 pg (27.0-31.0); Mean Corpuscular Volume 85.4 fL (78.0-98.0); Mean Platelet Volume 6.5 fL (7.4-10.4); Platelet Count 471 thou/uL (130-400); RBC Distribution Width 12.5 % (11.5-14.5); Red Blood Cell (RBC) Count 4.03 mill/uL (4.20-5.40); White Blood Cell (WBC) Count 6.3 thou/uL (4.8-10.8)
[2018-02-12 23:12] LABS: Band 1 % (5-11); Hypochromia SLIGHT = 6-15 cells (100X) (0-5/hpf); Lymphocytes 54 % (21-51); MDiff Complete? YES; Monocytes 5 % (0-10); Neutrophil 40 % (42-75); PLT Morphology Comment Appears Increased
[2018-02-12 23:13] LABS: ALT (SGPT) 12 U/L (8-55); AST (SGOT) 14 U/L (5-34); Albumin 3.9 g/dL (3.5-5.0); Alkaline Phosphatase 65 U/L (40-150); Anion Gap 11 mmol/L (10-20); BUN (Urea Nitrogen) 9 mg/dL (7.0-18.7); Calc. Creatinine Clearance 0 mL/min (70-130); Calcium 8.9 mg/dL (7.8-10.44); Carbon Dioxide 23 mmol/L (22-29); Chloride 106 mmol/L (98-107); Estimated GFR-MDRD Greater than 90; Globulin 3.1 g/dL (2.4-3.5); Glucose 87 mg/dL (70-105); Potassium 3.8 mmol/L (3.5-5.1); Sodium 136 mmol/L (136-145)
[2018-02-12 23:28] LABS: Bilirubin Negative (Negative); Blood, Urine Negative (Negative); Clarity CLEAR (Clear); Glucose, Urine (Dipstick) Negative (Negative); Leukocyte Moderate (Negative); Nitrite Negative (Negative); Protein, Urine (Dipstick) Negative (Neg-Trace); Specific Gravity, Urine 1.025 (1.002-1.036); pH, Urine 6.5 (5.0-9.0)
[2018-02-12 23:29] LABS: Pregnancy Test - Urine (BHCG) Negative (Negative); Pregu Control Background? CLEAR/WHITE (CLR/WHITE); Pregu Control Bar Appear? YES (CONTROL BAR); Specific Gravity 1.025 (1.002-1.036)
[2018-02-12 23:31] LABS: Bacteria/HPF None Seen HPF (None Seen); Hyaline Casts/LPF 0-3 HYALINE CAST LPF (0-3 Hyaline); Pathc Cast-AUWi Flag 0.58 (0-2.49); Squamous Epithelial 0-3 HPF (0-3)
[2018-02-13] MEDS ORDERED: Ketorolac Tromethamine 60 MG/2 ML VIAL ONE (00:06)
[2018-02-13] MEDS ORDERED: Sulfameth/Trimethoprim DS 800-160mg TAB ONE (00:06)
== END 2018-02-13 00:12 | disposition home or self-care (01) ==
LOC: ERS 21:53
DX: O86.20 Urinary tract infection following delivery, unspecified (principal); O99.89 Other specified diseases and conditions complicating pregnancy, childbirth and the puerperium; R10.9 Unspecified abdominal pain; O99.345 Other mental disorders complicating the puerperium; F31.9 Bipolar disorder, unspecified
CPT/HCPCS: 36415; 80053; 81003; 81015; 81025; 85025; 87086; 99284; A4353; J1885

== ENCOUNTER 2018-03-21 21:37 | Emergency (ER) | payer MEDICARE, OTHER ==
[2018-03-21] MEDS ORDERED: Ibuprofen 200 MG TAB ONE (22:37)
== END 2018-03-21 23:14 | disposition home or self-care (01) ==
LOC: ERS 21:37
DX: B34.9 Viral infection, unspecified (principal); F31.9 Bipolar disorder, unspecified
CPT/HCPCS: 87081; 87430; 87804; 99283

== ENCOUNTER 2018-03-26 22:11 | Emergency (ER) | payer MEDICARE, MEDICAID | END 2018-03-26 23:50 | disposition home or self-care (01) | LOC: ERS 22:11 | DX: L03.012 Cellulitis of left finger (principal); F31.9 Bipolar disorder, unspecified | CPT/HCPCS: 10060 ==

== ENCOUNTER 2018-03-28 12:27 | Emergency (ER) | payer MEDICARE, MEDICAID ==
[2018-03-28] MEDS ORDERED: Metoclopramide HCl 10 MG/2 ML VIAL ONE (13:49)
[2018-03-28] MEDS ORDERED: Ketorolac Tromethamine 30 MG/ML VIAL ONE (13:49)
[2018-03-28] MEDS ORDERED: Dexamethasone 10 MG/ML VIAL ONE (13:49)
[2018-03-28] MEDS ORDERED: Clindamycin/D5W 900 mg/50 ml Premix Bag ONE (13:49)
== END 2018-03-28 15:27 | disposition home or self-care (01) ==
LOC: ERS 12:27
DX: L04.9 Acute lymphadenitis, unspecified (principal); R51 Headache
CPT/HCPCS: 87804; 96365; 96375; J1100; J1885; J2765; J3490

== ENCOUNTER 2018-04-11 19:20 | Emergency (ER) | payer MEDICARE, OTHER ==
--- NOTE | 2018-04-11 21:53 | RAD ---
FRONTAL RADIOGRAPH CHEST: Date: 04-11-18 Comparison: None. History: Chest pain. FINDINGS: There is scoliotic curvature of the lower thoracic spine with apex to the right. No pneumothorax or p leural fluid. No focal consolidation or alveolar edema. IMPRESSION: Thoracic scoliosis. No acute findings. POS: [facility]
== END 2018-04-11 20:58 | disposition home or self-care (01) ==
LOC: ERS 19:20
DX: M94.0 Chondrocostal junction syndrome [Tietze] (principal); F31.9 Bipolar disorder, unspecified
CPT/HCPCS: 71045; 93005

== ENCOUNTER 2018-04-13 17:02 | Emergency (ER) | payer MEDICARE, MEDICAID ==
[2018-04-13] MEDS ORDERED: Dexamethasone 4 mg/ml Vial ONE (18:27)
== END 2018-04-13 18:32 | disposition home or self-care (01) ==
LOC: ERS 17:02
DX: J02.9 Acute pharyngitis, unspecified (principal); F31.9 Bipolar disorder, unspecified
CPT/HCPCS: 87081; 87430; 99283; J1100

== ENCOUNTER 2018-04-16 20:59 | Emergency (ER) | payer MEDICARE, MEDICAID | END 2018-04-16 21:26 | disposition home or self-care (01) | LOC: ERS 20:59 | DX: J03.90 Acute tonsillitis, unspecified (principal); F31.9 Bipolar disorder, unspecified | CPT/HCPCS: 99282 ==

== ENCOUNTER 2018-04-17 17:30 | Emergency (ER) | payer MEDICARE, OTHER | END 2018-04-17 18:21 | disposition home or self-care (01) | LOC: ERS 17:30 | DX: J03.90 Acute tonsillitis, unspecified (principal); F31.9 Bipolar disorder, unspecified; Z79.1 Long term (current) use of non-steroidal anti-inflammatories (NSAID) | CPT/HCPCS: 99282 ==

== ENCOUNTER 2018-04-19 22:38 | Emergency (ER) | payer MEDICARE, OTHER | END 2018-04-19 23:12 | disposition home or self-care (01) | LOC: ERS 22:38 | DX: R11.2 Nausea with vomiting, unspecified (principal); F31.9 Bipolar disorder, unspecified; Z79.1 Long term (current) use of non-steroidal anti-inflammatories (NSAID) | CPT/HCPCS: 99283 ==

== ENCOUNTER 2018-04-21 22:55 | Emergency (ER) | payer MEDICARE, MEDICAID ==
[2018-04-21 23:44] LABS: Bilirubin Negative (Negative); Blood, Urine Negative (Negative); Clarity CLEAR (Clear); Glucose, Urine (Dipstick) Negative (Negative); Leukocyte Moderate (Negative); Nitrite Negative (Negative); Protein, Urine (Dipstick) Negative (Neg-Trace); Specific Gravity, Urine 1.018 (1.002-1.036); Urobilinogen 0.2 mg/dL (0.2-1.0)
[2018-04-21 23:47] LABS: #Basophils 0.1 thou/uL (0.0-0.2); #Eosinphils 0.1 thou/uL (0.0-0.7); #Lymphocytes 3.4 thou/uL (1.20-3.40); #Monocytes 0.5 thou/uL (0.11-0.59); %Basophils 1.4 % (0.0-1.0); %Eosinophils 0.9 % (0.0-10.0); %Lymphocytes 37.1 % (21.0-51.0); %Monocytes 5.6 % (0.0-10.0); Hemoglobin 13.2 g/dL (12.0-16.0); Mean Corpuscular HGB CONC 32.3 g/dL (32.0-36.0); Mean Corpuscular Hemoglobin 27.7 pg (27.0-31.0); Mean Corpuscular Volume 85.7 fL (78.0-98.0); Mean Platelet Volume 5.9 fL (7.4-10.4); Platelet Count 453 thou/uL (130-400); RBC Distribution Width 13.4 % (11.5-14.5); Red Blood Cell (RBC) Count 4.77 mill/uL (4.20-5.40); White Blood Cell (WBC) Count 9.2 thou/uL (4.8-10.8)
[2018-04-21 23:47] LABS: Bacteria/HPF Rare-Few HPF (None Seen); Hyaline Casts/LPF 0-3 HYALINE CAST LPF (0-3 Hyaline); Pathc Cast-AUWi Flag 0.29 (0-2.49); RBC/HPF 0-3 HPF (0-3)
[2018-04-21 23:57] LABS: Pregnancy Test - Urine (BHCG) Negative (Negative)
[2018-04-21 23:58] LABS: Pregu Control Background? CLEAR/WHITE (CLR/WHITE); Pregu Control Bar Appear? YES (CONTROL BAR); Specific Gravity 1.018 (1.002-1.036)
[2018-04-22 00:09] LABS: ALT (SGPT) 19 U/L (8-55); AST (SGOT) 12 U/L (5-34); Albumin 4.4 g/dL (3.5-5.0); Alkaline Phosphatase 60 U/L (40-150); Anion Gap 13 mmol/L (10-20); BUN (Urea Nitrogen) 11 mg/dL (7.0-18.7); Bilirubin, Total 0.6 mg/dL (0.2-1.2); Calc. Creatinine Clearance 0 mL/min (70-130); Calcium 9.6 mg/dL (7.8-10.44); Carbon Dioxide 22 mmol/L (22-29); Chloride 107 mmol/L (98-107); Estimated GFR-MDRD Greater than 90; Globulin 3.4 g/dL (2.4-3.5); Glucose 83 mg/dL (70-105); Potassium 3.8 mmol/L (3.5-5.1); Protein, Total 7.8 g/dL (6.0-8.3); Sodium 138 mmol/L (136-145)
== END 2018-04-22 00:57 | disposition home or self-care (01) ==
LOC: ERS 22:55
DX: N30.01 Acute cystitis with hematuria (principal); F31.9 Bipolar disorder, unspecified
CPT/HCPCS: 36415; 80053; 81003; 81015; 81025; 85025; 99284

== ENCOUNTER 2018-04-25 20:18 | Emergency (ER) | payer MEDICARE, MEDICAID ==
[2018-04-25 21:32] LABS: #Basophils 0.1 thou/uL (0.0-0.2); #Eosinphils 0.1 thou/uL (0.0-0.7); #Lymphocytes 3.3 thou/uL (1.20-3.40); #Monocytes 0.6 thou/uL (0.11-0.59); %Basophils 1.1 % (0.0-1.0); %Eosinophils 0.9 % (0.0-10.0); %Lymphocytes 40.8 % (21.0-51.0); %Monocytes 7.2 % (0.0-10.0); Hemoglobin 11.9 g/dL (12.0-16.0); Mean Corpuscular HGB CONC 33.1 g/dL (32.0-36.0); Mean Corpuscular Volume 84.6 fL (78.0-98.0); Mean Platelet Volume 5.9 fL (7.4-10.4); Platelet Count 433 thou/uL (130-400); RBC Distribution Width 13.4 % (11.5-14.5); Red Blood Cell (RBC) Count 4.26 mill/uL (4.20-5.40)
--- NOTE | 2018-04-25 21:36 | RAD ---
CHEST ONE VIEW: History: Chest pain, dizziness. Comparison: 04-11-18 FINDINGS: Cardiac silhouette and pulmonary vasculature are unremarkable. Mediastinum is midline. No lobar conso lidation or evidence of pneumothorax. Rightward convex curvature of the thoracic spine is again demon strated. IMPRESSION: No active cardiopulmonary abnormalities are demonstrated. POS: [facility]
[2018-04-25 21:54] LABS: ALT (SGPT) 14 U/L (8-55); AST (SGOT) 12 U/L (5-34); Albumin 4.2 g/dL (3.5-5.0); Alkaline Phosphatase 52 U/L (40-150); Anion Gap 11 mmol/L (10-20); BUN (Urea Nitrogen) 13 mg/dL (7.0-18.7); Bilirubin, Total 0.8 mg/dL (0.2-1.2); CK (CPK) 78 U/L (29-168); Calc. Creatinine Clearance 0 mL/min (70-130); Calcium 10.1 mg/dL (7.8-10.44); Carbon Dioxide 23 mmol/L (22-29); Chloride 105 mmol/L (98-107); Estimated GFR-MDRD Greater than 90; Globulin 3.2 g/dL (2.4-3.5); Glucose 80 mg/dL (70-105); Potassium 3.9 mmol/L (3.5-5.1); Protein, Total 7.4 g/dL (6.0-8.3); Sodium 135 mmol/L (136-145)
[2018-04-25] MEDS ORDERED: diphenhydrAMINE 25 MG CAP ONE (22:22)
== END 2018-04-25 23:32 | disposition home or self-care (01) ==
LOC: ERS 20:18
DX: R07.9 Chest pain, unspecified (principal); M94.0 Chondrocostal junction syndrome [Tietze]; K21.9 Gastro-esophageal reflux disease without esophagitis; F31.9 Bipolar disorder, unspecified
CPT/HCPCS: 36415; 71045; 80053; 82550; 83690; 84484; 85025; 93005; Q0163

== ENCOUNTER 2018-05-03 04:20 | Emergency (ER) | payer MEDICARE, OTHER ==
[2018-05-03] MEDS ORDERED: HYDROcodone/Acetaminophen 5/325 mg Tablet ONE (05:13)
[2018-05-03] MEDS ORDERED: Ketorolac Tromethamine 60 MG/2 ML VIAL ONE (05:13)
== END 2018-05-03 05:53 | disposition home or self-care (01) ==
LOC: ERS 04:20
DX: M54.5 Low back pain (principal); F31.9 Bipolar disorder, unspecified; K21.9 Gastro-esophageal reflux disease without esophagitis
CPT/HCPCS: 96372; J1885

== ENCOUNTER 2018-05-12 | Emergency (ER) | payer MEDICARE, MEDICAID ==
[2018-05-12 00:19] LABS: Bilirubin Negative (Negative); Blood, Urine Moderate (Negative); Clarity CLEAR (Clear); Glucose, Urine (Dipstick) Negative (Negative); Leukocyte Small (Negative); Nitrite Negative (Negative); Protein, Urine (Dipstick) Negative (Neg-Trace); Specific Gravity, Urine 1.003 (1.002-1.036); Urobilinogen 0.2 mg/dL (0.2-1.0); pH, Urine 6.5 (5.0-9.0)
[2018-05-12 00:21] LABS: Pregnancy Test - Urine (BHCG) Negative (Negative); Pregu Control Background? CLEAR/WHITE (CLR/WHITE); Pregu Control Bar Appear? YES (CONTROL BAR); Specific Gravity 1.003 (1.002-1.036)
[2018-05-12 00:22] LABS: Bacteria/HPF None Seen HPF (None Seen); Hyaline Casts/LPF 0-3 HYALINE CAST LPF (0-3 Hyaline); Pathc Cast-AUWi Flag 0.14 (0-2.49); RBC/HPF 0-3 HPF (0-3); Squamous Epithelial 0-3 HPF (0-3)
[2018-05-12 01:22] LABS: #Basophils 0.1 thou/uL (0.0-0.2); #Eosinphils 0.1 thou/uL (0.0-0.7); #Lymphocytes 3.4 thou/uL (1.20-3.40); #Monocytes 0.5 thou/uL (0.11-0.59); #Neutrophils 4.5 thou/uL (1.40-6.50); %Basophils 0.7 % (0.0-1.0); %Eosinophils 0.6 % (0.0-10.0); %Lymphocytes 40.2 % (21.0-51.0); %Neutrophils 52.5 % (42.0-75.0); Hemoglobin 13.1 g/dL (12.0-16.0); Mean Corpuscular HGB CONC 32.9 g/dL (32.0-36.0); Mean Corpuscular Hemoglobin 27.8 pg (27.0-31.0); Mean Corpuscular Volume 84.5 fL (78.0-98.0); Mean Platelet Volume 6.1 fL (7.4-10.4); Platelet Count 412 thou/uL (130-400); RBC Distribution Width 13.1 % (11.5-14.5); Red Blood Cell (RBC) Count 4.69 mill/uL (4.20-5.40); White Blood Cell (WBC) Count 8.5 thou/uL (4.8-10.8)
[2018-05-12 01:44] LABS: ALT (SGPT) 17 U/L (8-55); AST (SGOT) 15 U/L (5-34); Albumin 4.5 g/dL (3.5-5.0); Alkaline Phosphatase 57 U/L (40-150); Anion Gap 13 mmol/L (10-20); BUN (Urea Nitrogen) 12 mg/dL (7.0-18.7); Bilirubin, Total 0.5 mg/dL (0.2-1.2); Calc. Creatinine Clearance 0 mL/min (70-130); Carbon Dioxide 23 mmol/L (22-29); Chloride 106 mmol/L (98-107); Estimated GFR-MDRD Greater than 90; Globulin 3.6 g/dL (2.4-3.5); Glucose 76 mg/dL (70-105); Potassium 3.9 mmol/L (3.5-5.1); Protein, Total 8.1 g/dL (6.0-8.3); Sodium 138 mmol/L (136-145)
[2018-05-12] MEDS ORDERED: Ketorolac Tromethamine 30 MG/ML VIAL ONE (02:07)
--- NOTE | 2018-05-12 07:59 | CT ---
PRELIMINARY REPORT/[facility]/EMERGENTY AFTER-HOURS PROCEDURE CT Abdomen and Pelvis Without Contrast EXAM DATE/TIME: 05/12/2018 1:45 AM CLINICAL HISTORY: 22 years old, female; Pain; Abdominal pain; Flank; Left; Prior surgery; Patient HX: Er 5; 22 yo femoly leon presents for evaluation of left sided flank pain. Patient states the pain began tonight. She does n ot have SOB, chest pain, uti symptoms, or n/v/d. Patient has not tried anything for this. Patient den ies abdominal pain. Patient reports she gets kidney infections 2-3 times per year. Surgical history o f appendectomy. Cervical cerclage august 2016 TECHNIQUE: Axial computed tomography images of the abdomen and pelvis without contrast. Coronal reformatted images were created and reviewed. COMPARISON: No relevant prior studies available. FINDINGS: Lower thorax: No acute findings. ABDOMEN: Liver: Normal. Gallbladder and bile ducts: Normal Pancreas: Normal. Spleen: Normal. Adrenals: Normal. Kidneys and ureters: No left kidney present within the expected location, possibly secondary to conge nital absence or cross fused ectopia. Evaluation limited on this noncontrast examination. Stomach and bowel: Normal. Appendix: Appendix normal. PELVIS: Bladder: Unremarkable as visualized. Reproductive: Unremarkable as visualized. ABDOMEN and PELVIS: Intraperitoneal space: Normal. No free air. No significant fluid collection. Bones/joints: Scoliosis of the thoracolumbar spine. Soft tissues: Normal. Vasculature: Phleboliths pelvis. Lymph nodes: Normal. No enlarged lymph nodes. IMPRESSION: No acute abdominal or pelvic abnormality. Thank you for allowing us to participate in the care of your patient. Dictated and Authenticated by: Jevon Garcia MD 05/12/2018 2:42 AM Central Time ([place] & [place]) FINAL REPORT CT ABDOMEN AND PELVIS NONCONTRAST: DATE: 05/12/2018. TIME: Performed on an emergency basis at 0146 hours. HISTORY: Left flank pain. COMPARISON: 03/09/2017. FINDINGS: Agree with the preliminary report by Dr. Garcia from [facility]. Left kidney is congenitally absent. No evidence of right urinary tract obstruction or calcification. Lack of contrast decreases sensitivity of exam for other abnormalities. POS: [facility]
== END 2018-05-12 03:31 | disposition home or self-care (01) ==
LOC: ERS
DX: R10.9 Unspecified abdominal pain (principal); M19.90 Unspecified osteoarthritis, unspecified site; F31.9 Bipolar disorder, unspecified; K21.9 Gastro-esophageal reflux disease without esophagitis
CPT/HCPCS: 74176; 80053; 81003; 81015; 81025; 85025; 96374; J1885

== ENCOUNTER 2018-06-16 00:38 | Emergency (ER) | payer MEDICARE, MEDICAID ==
[2018-06-16 01:54] LABS: #Basophils 0.1 thou/uL (0.0-0.2); #Eosinphils 0.2 thou/uL (0.0-0.7); #Lymphocytes 3.3 thou/uL (1.20-3.40); #Monocytes 0.5 thou/uL (0.11-0.59); #Neutrophils 3.7 thou/uL (1.40-6.50); %Basophils 0.9 % (0.0-1.0); %Eosinophils 2.9 % (0.0-10.0); %Lymphocytes 42.1 % (21.0-51.0); %Monocytes 6.8 % (0.0-10.0); %Neutrophils 47.4 % (42.0-75.0); Hemoglobin 12.7 g/dL (12.0-16.0); Mean Corpuscular HGB CONC 32.1 g/dL (32.0-36.0); Mean Corpuscular Hemoglobin 27.6 pg (27.0-31.0); Mean Corpuscular Volume 86.1 fL (78.0-98.0); Mean Platelet Volume 6.3 fL (7.4-10.4); Platelet Count 435 thou/uL (130-400); RBC Distribution Width 13.4 % (11.5-14.5); Red Blood Cell (RBC) Count 4.59 mill/uL (4.20-5.40); White Blood Cell (WBC) Count 7.9 thou/uL (4.8-10.8)
[2018-06-16 02:06] LABS: ALT (SGPT) 21 U/L (8-55); AST (SGOT) 15 U/L (5-34); Albumin 4.3 g/dL (3.5-5.0); Alkaline Phosphatase 54 U/L (40-150); Anion Gap 12 mmol/L (10-20); BUN (Urea Nitrogen) 12 mg/dL (7.0-18.7); Bilirubin, Total 0.6 mg/dL (0.2-1.2); Calc. Creatinine Clearance 0 mL/min (70-130); Calcium 9.4 mg/dL (7.8-10.44); Carbon Dioxide 21 mmol/L (22-29); Chloride 110 mmol/L (98-107); Estimated GFR-MDRD Greater than 90; Globulin 3.2 g/dL (2.4-3.5); Glucose 83 mg/dL (70-105); Potassium 4.2 mmol/L (3.5-5.1); Protein, Total 7.5 g/dL (6.0-8.3); Sodium 139 mmol/L (136-145)
[2018-06-16 02:33] LABS: BHCG - Serum Negative (NEGATIVE); Pregs Control Background? CLEAR/WHITE (CLR/WHITE); Pregs Control Bar Appear? YES (CONTROL BAR)
[2018-06-16 03:00] LABS: Bilirubin Negative (Negative); Blood, Urine Negative (Negative); Clarity CLEAR (Clear); Glucose, Urine (Dipstick) Negative (Negative); Leukocyte Small (Negative); Nitrite Negative (Negative); Protein, Urine (Dipstick) Negative (Neg-Trace); Specific Gravity, Urine 1.027 (1.002-1.036); pH, Urine 6.5 (5.0-9.0)
[2018-06-16 03:01] LABS: Pregnancy Test - Urine (BHCG) Negative (Negative); Pregu Control Background? CLEAR/WHITE (CLR/WHITE); Pregu Control Bar Appear? YES (CONTROL BAR); Specific Gravity 1.027 (1.002-1.036)
[2018-06-16 03:03] LABS: Bacteria/HPF Rare-Few HPF (None Seen); Hyaline Casts/LPF 0-3 HYALINE CAST LPF (0-3 Hyaline); Pathc Cast-AUWi Flag 0.13 (0-2.49); RBC/HPF 0-3 HPF (0-3); Squamous Epithelial 0-3 HPF (0-3); WBC/HPF 21-50 HPF (0-3)
[2018-06-16] MEDS ORDERED: Ondansetron PF 4 MG/2 ML Vial ONE (03:33)
[2018-06-16] MEDS ORDERED: Morphine 4 MG/ML VIAL ONE (03:45)
[2018-06-16] MEDS ORDERED: cefTRIAXone\\ROCEPHIN 1 GM VIAL ONE (04:12)
== END 2018-06-16 05:19 | disposition home or self-care (01) ==
LOC: ERS 00:38
DX: N39.0 Urinary tract infection, site not specified (principal); R10.12 Left upper quadrant pain; F31.9 Bipolar disorder, unspecified; K21.9 Gastro-esophageal reflux disease without esophagitis
CPT/HCPCS: 36415; 80053; 81003; 81015; 81025; 83690; 84703; 85025; 87086; 96361; 96365; 96375; J0696; J2270; J2405

== ENCOUNTER 2018-10-10 19:50 | Emergency (ER) | payer MEDICARE, MEDICAID ==
[2018-10-10] MEDS ORDERED: Ibuprofen 200 MG TAB ONE (21:22)
== END 2018-10-10 21:41 | disposition home or self-care (01) ==
LOC: ERS 19:50
DX: S40.021A Contusion of right upper arm, initial encounter (principal); K21.9 Gastro-esophageal reflux disease without esophagitis; I10 Essential (primary) hypertension; F31.9 Bipolar disorder, unspecified; W22.8XXA Striking against or struck by other objects, initial encounter
CPT/HCPCS: 99283

== ENCOUNTER 2018-10-18 19:34 | Emergency (ER) | payer MEDICARE, MEDICAID ==
[2018-10-18] MEDS ORDERED: Metoclopramide HCl 10 MG/2 ML VIAL ONE (21:00)
[2018-10-18] MEDS ORDERED: diphenhydrAMINE 50 MG/ML VIAL ONE (21:00)
[2018-10-18] MEDS ORDERED: Ketorolac Tromethamine 30 MG/ML VIAL ONE (21:00)
== END 2018-10-18 22:00 | disposition home or self-care (01) ==
LOC: ERS 19:34
DX: R51 Headache (principal); I10 Essential (primary) hypertension; F31.9 Bipolar disorder, unspecified; K21.9 Gastro-esophageal reflux disease without esophagitis; Z79.899 Other long term (current) drug therapy
CPT/HCPCS: 96365; 96375; J1200; J1885; J2765

== ENCOUNTER 2018-11-12 22:21 | Emergency (ER) | payer MEDICARE, MEDICAID | END 2018-11-12 23:15 | disposition home or self-care (01) | LOC: ERS 22:21 | DX: M25.532 Pain in left wrist (principal); K21.9 Gastro-esophageal reflux disease without esophagitis; F31.9 Bipolar disorder, unspecified; Z79.899 Other long term (current) drug therapy | CPT/HCPCS: 99281 ==

== ENCOUNTER 2018-11-14 01:06 | Emergency (ER) | payer MEDICARE, MEDICAID | END 2018-11-14 01:41 | disposition home or self-care (01) | LOC: ERS 01:06 | DX: T78.40XA Allergy, unspecified, initial encounter (principal); R09.81 Nasal congestion; K21.9 Gastro-esophageal reflux disease without esophagitis; I10 Essential (primary) hypertension; F31.9 Bipolar disorder, unspecified; Z79.899 Other long term (current) drug therapy | CPT/HCPCS: 99282 ==

== ENCOUNTER 2018-11-15 23:08 | Emergency (ER) | payer MEDICARE, MEDICAID ==
[2018-11-15 23:34] LABS: Bilirubin Negative (Negative); Blood, Urine 3+ (Negative); Clarity Turbid (Clear); Glucose, Urine (Dipstick) Normal (Negative); Leukocyte 500 Leu/uL (Negative); Nitrite Negative (Negative); Protein, Urine (Dipstick) 30 mg/dL (Neg-Trace); RBC/HPF 21-50 HPF (0-3); WBC/HPF Greater than 50 HPF (0-3)
[2018-11-15 23:35] LABS: Bacteria/HPF 1+ HPF (None Seen); Pregnancy Test - Urine (BHCG) Negative (Negative); Pregu Control Background? CLEAR/WHITE (CLR/WHITE); Pregu Control Bar Appear? YES (CONTROL BAR); Specific Gravity 1.032 (1.002-1.036)
== END 2018-11-16 00:05 | disposition home or self-care (01) ==
LOC: ERS 23:08
DX: N39.0 Urinary tract infection, site not specified (principal); K21.9 Gastro-esophageal reflux disease without esophagitis; I10 Essential (primary) hypertension; F31.9 Bipolar disorder, unspecified
CPT/HCPCS: 81003; 81015; 81025; 99283

== ENCOUNTER 2018-12-08 19:20 | Emergency (ER) | payer MEDICARE, MEDICAID ==
[~2018-12-08 19:20] MED LIST: ISOVUE-370 76%-LOCM 1 ML ONE
[2018-12-08] MEDS ORDERED: Morphine 4 MG/ML VIAL ONE (20:25)
[2018-12-08] MEDS ORDERED: Ketorolac Tromethamine 30 MG/ML VIAL ONE (20:26)
[2018-12-08] MEDS ORDERED: Ondansetron PF 4 MG/2 ML Vial ONE (20:26)
[2018-12-08 20:58] LABS: #Basophils 0.1 thou/uL (0.0-0.2); #Lymphocytes 2.4 thou/uL (1.20-3.40); #Monocytes 0.7 thou/uL (0.11-0.59); #Neutrophils 3.8 thou/uL (1.40-6.50); %Basophils 1.5 % (0.0-1.0); %Eosinophils 0.6 % (0.0-10.0); %Lymphocytes 34.4 % (21.0-51.0); %Monocytes 9.6 % (0.0-10.0); %Neutrophils 53.9 % (42.0-75.0); Hemoglobin 12.9 g/dL (12.0-16.0); Mean Corpuscular HGB CONC 32.9 g/dL (32.0-36.0); Mean Corpuscular Hemoglobin 27.9 pg (27.0-31.0); Mean Corpuscular Volume 84.8 fL (78.0-98.0); Mean Platelet Volume 6.6 fL (7.4-10.4); Platelet Count 255 thou/uL (130-400); RBC Distribution Width 12.3 % (11.5-14.5); Red Blood Cell (RBC) Count 4.62 mill/uL (4.20-5.40); White Blood Cell (WBC) Count 7.1 thou/uL (4.8-10.8)
[2018-12-08 21:08] LABS: BHCG - Serum Negative (NEGATIVE); Pregs Control Background? CLEAR/WHITE (CLR/WHITE); Pregs Control Bar Appear? YES (CONTROL BAR)
[2018-12-08 21:23] LABS: ALT (SGPT) 18 U/L (8-55); AST (SGOT) 16 U/L (5-34); Alkaline Phosphatase 57 U/L (40-150); Anion Gap 11 mmol/L (10-20); BUN (Urea Nitrogen) 11 mg/dL (7.0-18.7); Bilirubin, Total 0.4 mg/dL (0.2-1.2); Calc. Creatinine Clearance 0 mL/min (70-130); Calcium 9.1 mg/dL (7.8-10.44); Carbon Dioxide 22 mmol/L (22-29); Chloride 105 mmol/L (98-107); Estimated GFR-MDRD Greater than 90; Globulin 3.2 g/dL (2.4-3.5); Glucose 68 mg/dL (70-105); Lipase 27 U/L (8-78); Potassium 4.1 mmol/L (3.5-5.1); Protein, Total 7.2 g/dL (6.0-8.3); Sodium 134 mmol/L (136-145)
[2018-12-08 22:16] LABS: Bilirubin Negative (Negative); Blood, Urine 2+ (Negative); Clarity Clear (Clear); Glucose, Urine (Dipstick) Normal (Negative); Leukocyte 25 Leu/uL (Negative); Nitrite Negative (Negative); Protein, Urine (Dipstick) 10 mg/dL (Neg-Trace); Squamous Epithelial 0-3 HPF (0-3)
--- NOTE | 2018-12-08 22:22 | CT ---
CT ABDOMEN WITH CONTRAST CT PELVIS WITH CONTRAST: DATE: 12/08/2018 HISTORY: 23-year-old female with lower abdominal pain. COMPARISON: 05/12/2018 06/21/2013 TECHNIQUE: IV injection of iodinated contrast media: administered. Oral contrast media:Not administered FINDINGS: There is a new finding of a 4.5 x 3 x 1.5 cm moderately enhancing solid mass just to the right of mid line in the deep mesentery, located anterior and to the right of the abdominal aorta extending from the L2-3 through L4 levels. This is surrounded by edema. This probably represents a conglomeration of enlarged mesenteric lymph nodes. Nearby, there are additional enlarged mesenteric lymph nodes. Left kidney is absent. Compensatory hypertrophy of the right kidney. No right-sided hydronephrosis, nephrolithiasis, or pyel onephritis. Appendix surgically absent by history. New finding of small amount of free fluid in the pelvis to the left of the rectum. No small bowel dilation. No signs of colonic diverticulitis. Normal abdominal aorta, pancreas, adrenals, spleen, and liver. Lung bases are grossly clear. S-shaped scoliosis of thoracolumbar spine, mild-moderate. No pneumoperitoneum.. IMPRESSION: 1) somewhat severe mesenteric lymphadenopathy, including a moderately enlarged mesenteric mass surrou nded by edema. Etiology uncertain. 2) congenitally absent left kidney and compensatory hypertrophy of the right kidney. 3) S-shaped scoliosis.
[2018-12-08 22:24] LABS: Bacteria/HPF 1+ HPF (None Seen)
== END 2018-12-08 22:45 | disposition home or self-care (01) ==
LOC: ERS 19:20
DX: I88.0 Nonspecific mesenteric lymphadenitis (principal); I10 Essential (primary) hypertension; F31.9 Bipolar disorder, unspecified; K21.9 Gastro-esophageal reflux disease without esophagitis; Z79.899 Other long term (current) drug therapy
CPT/HCPCS: 74177; 80053; 81003; 81015; 83690; 84703; 85025; 87086; 96361; 96374; 96375; J1885; J2270; J2405; Q9966

== ENCOUNTER 2018-12-11 21:41 | Emergency (ER) | payer MEDICARE, OTHER ==
[2018-12-11] MEDS ORDERED: Ibuprofen 800 MG TAB ONE (22:02)
[2018-12-11] MEDS ORDERED: Ondansetron ODT 8 MG TAB ONE (22:02)
== END 2018-12-11 23:30 | disposition home or self-care (01) ==
LOC: ERS 21:41
DX: B34.9 Viral infection, unspecified (principal); K21.9 Gastro-esophageal reflux disease without esophagitis; I10 Essential (primary) hypertension; F31.9 Bipolar disorder, unspecified
CPT/HCPCS: 87804; 99283

== ENCOUNTER 2018-12-17 21:45 | Emergency (ER) | payer MEDICARE, OTHER ==
[2018-12-17] MEDS ORDERED: Ketorolac Tromethamine 60 MG/2 ML VIAL ONE (22:41)
[2018-12-17] MEDS ORDERED: Metoclopramide HCl 10 MG TAB ONE (22:41)
== END 2018-12-17 23:26 | disposition home or self-care (01) ==
LOC: ERS 21:45
DX: G43.909 Migraine, unspecified, not intractable, without status migrainosus (principal); K21.9 Gastro-esophageal reflux disease without esophagitis; F31.9 Bipolar disorder, unspecified; I10 Essential (primary) hypertension
CPT/HCPCS: 96372; J1885; J8597

== ENCOUNTER 2019-04-10 05:37 | Emergency (ER) | payer MEDICARE, OTHER ==
[2019-04-10 06:24] LABS: Pregnancy Test - Urine (BHCG) Negative (Negative); Pregu Control Background? CLEAR/WHITE (CLR/WHITE); Pregu Control Bar Appear? YES (CONTROL BAR)
[2019-04-10 06:26] LABS: Bacteria/HPF None Seen HPF (None Seen); Bilirubin Negative (Negative); Blood, Urine 3+ (Negative); Clarity Extra Turbid (Clear); Glucose, Urine (Dipstick) Normal (Negative); Leukocyte 500 Leu/uL (Negative); Nitrite Negative (Negative); Protein, Urine (Dipstick) 300 mg/dL (Neg-Trace); RBC/HPF Greater than 50 HPF (0-3); Specific Gravity 1.028 (1.002-1.036); Urobilinogen Normal mg/dL (Less than 2); WBC/HPF Greater than 50 HPF (0-3)
== END 2019-04-10 06:45 | disposition home or self-care (01) ==
LOC: ERS 05:37
DX: N39.0 Urinary tract infection, site not specified (principal); K21.9 Gastro-esophageal reflux disease without esophagitis; I10 Essential (primary) hypertension; F31.9 Bipolar disorder, unspecified
CPT/HCPCS: 81003; 81015; 81025; 99283

== ENCOUNTER 2019-10-12 18:45 | Emergency (ER) | payer MEDICARE, MEDICAID ==
[2019-10-12 19:25] LABS: Bilirubin Negative (Negative); Blood, Urine 3+ (Negative); Clarity Turbid (Clear); Glucose, Urine (Dipstick) Normal (Negative); Ketone, Urine Negative (Negative); Leukocyte 500 Leu/uL (Negative); Nitrite Negative (Negative); Protein, Urine (Dipstick) 50 mg/dL (Neg-Trace); RBC/HPF Greater than 50 HPF (0-3); Specific Gravity, Urine 1.016 (1.002-1.036); Transitional Epithelial 0-3 HPF (None Seen); Urobilinogen Normal mg/dL (Less than 2); WBC/HPF Greater than 50 HPF (0-3)
[2019-10-12 19:26] LABS: Bacteria/HPF 1+ HPF (None Seen)
== END 2019-10-12 19:35 | disposition home or self-care (01) ==
LOC: ERS 18:45
DX: N39.0 Urinary tract infection, site not specified (principal); K21.9 Gastro-esophageal reflux disease without esophagitis; F31.9 Bipolar disorder, unspecified; I10 Essential (primary) hypertension
CPT/HCPCS: 81003; 81015; 87077; 87086; 87186; 99283

== ENCOUNTER 2019-12-26 21:29 | Inpatient (IN) | payer BC, MEDICARE, MEDICAID, OTHER ==
[2019-12-26 22:14] LABS: #Lymphocytes 1.8 thou/uL (1.20-3.40); #Monocytes 0.4 thou/uL (0.11-0.59); #Neutrophils 3.3 thou/uL (1.40-6.50); %Basophils 0.1 % (0.0-1.0); %Eosinophils 0.3 % (0.0-10.0); %Lymphocytes 32.4 % (21.0-51.0); %Monocytes 7.9 % (0.0-10.0); %Neutrophils 59.2 % (42.0-75.0); Hemoglobin 12.3 g/dL (12.0-16.0); Mean Corpuscular HGB CONC 33.6 g/dL (32.0-36.0); Mean Corpuscular Hemoglobin 27.6 pg (27.0-31.0); Mean Corpuscular Volume 82.2 fL (78.0-98.0); Mean Platelet Volume 6.5 fL (7.4-10.4); Platelet Count 365 thou/uL (130-400); RBC Distribution Width 11.8 % (11.5-14.5); Red Blood Cell (RBC) Count 4.44 mill/uL (4.20-5.40); White Blood Cell (WBC) Count 5.6 thou/uL (4.8-10.8)
[2019-12-26 22:34] LABS: ALT (SGPT) 11 U/L (8-55); AST (SGOT) 14 U/L (5-34); Albumin 4.2 g/dL (3.5-5.0); Alkaline Phosphatase 60 U/L (40-110); Anion Gap 10 mmol/L (10-20); BUN (Urea Nitrogen) 11 mg/dL (7.0-18.7); Bilirubin, Total 0.4 mg/dL (0.2-1.2); Calc. Creatinine Clearance 0 mL/min (70-130); Calcium 8.7 mg/dL (7.8-10.44); Carbon Dioxide 23 mmol/L (22-29); Chloride 103 mmol/L (98-107); Estimated GFR-MDRD Greater than 90; Globulin 3.4 g/dL (2.4-3.5); Glucose 102 mg/dL (70-105); Potassium 3.9 mmol/L (3.5-5.1); Protein, Total 7.6 g/dL (6.0-8.3); Sodium 132 mmol/L (136-145)
[2019-12-26 22:42] LABS: Bacteria/HPF None Seen HPF (None Seen); Bilirubin Negative (Negative); Blood, Urine Trace (Negative); Clarity Clear (Clear); Glucose, Urine (Dipstick) Normal (Negative); Ketone, Urine Negative (Negative); Leukocyte 75 Leu/uL (Negative); Nitrite Negative (Negative); Protein, Urine (Dipstick) 10 mg/dL (Neg-Trace); Specific Gravity, Urine 1.027 (1.002-1.036); Urobilinogen Normal mg/dL (Less than 2); pH, Urine 6.5 (5.0-9.0)
[2019-12-26 22:44] LABS: Pregnancy Test - Urine (BHCG) Negative (Negative); Pregu Control Background? CLEAR/WHITE (CLR/WHITE); Pregu Control Bar Appear? YES (CONTROL BAR); Specific Gravity 1.027 (1.002-1.036)
[2019-12-26] MEDS ORDERED: cefTRIAXone\\ROCEPHIN 1 GM VIAL ONE (23:36)
[2019-12-26] MEDS ORDERED: Vancomycin 1 GM/200 ML BAG ONE (23:36)
[2019-12-26] MEDS ORDERED: Ondansetron PF 4 MG/2 ML Vial ONE (23:52)
[2019-12-27] MEDS ORDERED: Acetaminophen 500 MG TAB ONE (01:08)
[2019-12-27 02:24] VITALS: BMI 32.6
--- NOTE | 2019-12-27 02:27 | PDOC.HHP ---
Hospitalist HPI - History of Present Illness flank pain History of Present Illness: Ms. Alcantar is a 24F with a PMHx of a congenital single kidney, bipolar disorder, and HTN who presents for fever, chills, and increased urinary frequency. Pt reports that yesterday she noticed right-sided flank pain and cloudy urine. She denies dysuria, but endorses frequency. States that this morning she developed fever, chills, and worsening back pain which promoted her to visit the ED. Pt states that she frequently gets UTIs and kidney infections which require hospitalization. Last UTI was 3 months ago. Pt denies chest pain, SOB, abdominal pain. In ED initial vital signs 119/60, 92, 24, 100.8, 100% on RA. UA positive, H/H 12.3/36.5, BUN/Cr 11/0.81. Na 132, K 3.9. Lactic acid 0.7. Pt received IV vanc, ceftriaxone, and 1L NS in the ED. Hospitalist ROS - Review of Systems Constitutional: reports: fever, chills, malaise. denies: sweats, weakness, other Eyes: denies: pain, vision change, conjunctivae inflammation, eyelid inflammation, redness, other ENT: denies: ear pain, ear discharge, nose pain, nose discharge, nose congestion, mouth pain, mouth swelling, throat pain, throat swelling, other Respiratory: denies: cough, dry, shortness of breath, hemoptysis, SOB with excertion, pleuritic pain, sputum, wheezing, other Cardiovascular: denies: chest pain, palpitations, orthopnea, paroxysmal noc. dyspnea, edema, light headedness, other Gastrointestinal: reports: other (Flank pain). denies: nausea, vomiting, abdom inal pain, diarrhea, constipation, melena, hematochezia Genitourinary: reports: frequency. denies: dysuria, incontinence, hematuria, retention, other Musculoskeletal: denies: neck pain, shoulder pain, arm pain, back pain, hand pain, leg pain, foot pain, other Skin: denies: rash, lesions, parvin, bruising, other Neurological: denies: weakness, numbness, incoordination, change in speech, confusion, seizures, other - Medication Medications: On Abilify weekly injections. Pt reports she was prescribed a BP medications for her HTN, however she does not take it. Hospitalist History - Past Medical History Other Medical History: PMHX: 1. Congenital single kidney 2. Recurrent UTIs 3. Bipolar disorder 4. Hypertension - Past Surgical History Other Surgical History: Surgical hx: Appendectomy Cervical Cerclage Tubal Ligation - Family History Family History: reports: no pertinent history - Social History Smoking Status: Never smoker Alcohol: reports: None Drugs: reports: none Living Situation: Alone Activity level: independent ambulation - Exam General Appearance: NAD, awake alert Eye: PERRL, anicteric sclera ENT: normocephalic atraumatic, no oropharyngeal lesions, moist mucosa Neck: supple, symmetric, no JVD, no thyromegaly, no lymphadenopathy, no carotid bruit Heart: RRR, no murmur, no gallops, no rubs, normal peripheral pulses Respiratory: CTAB, no wheezes, no rales, no ronchi, normal chest expansion, no tachypnea, normal percussion Gastrointestinal: soft, non-tender, non-distended, normal bowel sounds, no palpable masses, no hepatomegaly, no splenomegaly, no bruit Gastrointestinal - other findings: R CVA tenderness Extremities: no cyanosis, no clubbing, no edema Skin: normal turgor, no lesions, no rashes Neurological: cranial nerve grossly intact, normal sensation to touch, no weakness, no focal deficits, no new deficit Musculoskeletal: normal tone, normal strength, no muscle wasting Psychiatric: normal affect, normal behavior, A&O x 3 Hospitalist Results - Labs Result Diagrams: 12/26/19 21:51 12/26/19 21:51 Lab results: WBC 5.6 thou/uL (4.8-10.8) 12/26/19 21:51 Hgb 12.3 g/dL (12.0-16.0) 12/26/19 21:51 Hct 36.5 % (36.0-47.0) 12/26/19 21:51 MCV 82.2 fL (78.0-98.0) 12/26/19 21:51 Plt Count 365 thou/uL (130-400) 12/26/19 21:51 Neutrophils % 59.2 % (42.0-75.0) 12/26/19 21:51 Sodium 132 mmol/L (136-145) L 12/26/19 21:51 Potassium 3.9 mmol/L (3.5-5.1) 12/26/19 21:51 Chloride 103 mmol/L (98-107) 12/26/19 21:51 Carbon Dioxide 23 mmol/L (22-29) 12/26/19 21:51 BUN 11 mg/dL (7.0-18.7) 12/26/19 21:51 Creatinine 0.81 mg/dL (0.6-1.1) 12/26/19 21:51 Glucose 102 mg/dL (70-105) 12/26/19 21:51 Lactic Acid 0.7 mmol/L (0.5-2.2) 12/26/19 22:27 Calcium 8.7 mg/dL (7.8-10.44) 12/26/19 21:51 Total Bilirubin 0.4 mg/dL (0.2-1.2) 12/26/19 21:51 AST 14 U/L (5-34) 12/26/19 21:51 ALT 11 U/L (8-55) 12/26/19 21:51 Alkaline Phosphatase 60 U/L (40-110) 12/26/19 21:51 Serum Total Protein 7.6 g/dL (6.0-8.3) 12/26/19 21:51 Albumin 4.2 g/dL (3.5-5.0) 12/26/19 21:51 Urine Ketones Negative mg/dL (Negative) 12/26/19 22:05 Urine Blood Trace (Negative) A 12/26/19 22:05 Urine Nitrite Negative (Negative) 12/26/19 22:05 Ur Leukocyte Esterase 75 Ananya/uL (Negative) A 12/26/19 22:05 Urine RBC 4-6 HPF (0-3) A 12/26/19 22:05 Urine WBC 11-20 HPF (0-3) A 12/26/19 22:05 Ur Squamous Epith Cells 4-6 HPF (0-3) A 12/26/19 22:05 Urine Bacteria None Seen HPF (None Seen) 12/26/19 22:05 Hospitalist H&P A/P - Problem (1) SIRS (systemic inflammatory response syndrome) Code(s): R65.10 - SIRS OF NON-INFECTIOUS ORIGIN W/O ACUTE ORGAN DYSFUNCTION Status: Acute (2) Pyelonephritis Code(s): N12 - TUBULO-INTERSTITIAL NEPHRITIS, NOT SPCF ACUTE OR CHRONIC Status: Acute (3) Hypertension Code(s): I10 - ESSENTIAL (PRIMARY) HYPERTENSION Status: Acute - Plan Plan: Pyelonephritis: 24F with hx of recurrent UTIs/pyelonephritis and congenital single kidney presents with fever, CVA tenderness, and increased urinary frequency. UA positive. Started on IV ceftriaxone and IV vancomycin. BUN/Cr 11/0.81. Will obtain renal US to make r/o complications. PLAN: -Renal US -Continue IV abx -Follow urine cx -Trend renal function -Consider nephrology consult Sepsis without septic shock: Pt presented with fever, chills, and tachycardia. WBC 5.6. Lactic acid 0.7. Pt started on broad spectrum IV abx and IVF. Meeting SIRS criteria. PLAN: -Follow bcx -Continue broad spectrum abx -Desecalate abx pending urine cx -IVF -Trend WBCs, fever curve -Tylenol DVT Prophylaxis: SCDs FULL CODE
[2019-12-27] MEDS ORDERED: Vancomycin 1 GM in Premix Bag 1 BAG IVPB SCH (03:45)
[2019-12-27] MEDS: Sodium Chloride 0.9% 1,000 ML IV SCH ×3 (04:09→21:17)
[2019-12-27] MEDS ORDERED: Vancomycin HCl 1.25 GM in Sodium Chloride 0.9% 250 ML 250 ML IVPB SCH ×2 (06:00→09:00)
[2019-12-27 06:45] LABS: #Basophils 0.1 thou/uL (0.0-0.2); #Monocytes 0.5 thou/uL (0.11-0.59); #Neutrophils 1.7 thou/uL (1.40-6.50); %Basophils 1.4 % (0.0-1.0); %Eosinophils 0.3 % (0.0-10.0); %Lymphocytes 47.8 % (21.0-51.0); %Monocytes 10.6 % (0.0-10.0); %Neutrophils 39.8 % (42.0-75.0); Hemoglobin 11.7 g/dL (12.0-16.0); Mean Corpuscular HGB CONC 32.7 g/dL (32.0-36.0); Mean Corpuscular Volume 82.7 fL (78.0-98.0); Mean Platelet Volume 6.3 fL (7.4-10.4); Platelet Count 337 thou/uL (130-400); RBC Distribution Width 11.8 % (11.5-14.5); Red Blood Cell (RBC) Count 4.31 mill/uL (4.20-5.40); White Blood Cell (WBC) Count 4.2 thou/uL (4.8-10.8)
[2019-12-27 07:06] LABS: Anion Gap 12 mmol/L (10-20); BUN (Urea Nitrogen) 9 mg/dL (7.0-18.7); Calc. Creatinine Clearance 163 mL/min (70-130); Calcium 8.1 mg/dL (7.8-10.44); Carbon Dioxide 21 mmol/L (22-29); Chloride 109 mmol/L (98-107); Estimated GFR-MDRD Greater than 90; Glucose 99 mg/dL (70-105); Sodium 138 mmol/L (136-145)
--- NOTE | 2019-12-27 11:07 | ULT ---
RENAL ULTRASOUND: HISTORY: Pyelonephritis. FINDINGS: Real-time imaging of the right kidney shows a normal-size kidney measuring 13.8 cm in length. No cys t or mass. No obstruction. The left kidney is not visualized. 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 Bladder region appears unremarkable. IMPRESSION: 1. Unremarkable-appearing right kidney. 2. Absent left kidney. POS: [facility]
[2019-12-27] MEDS: Acetaminophen 325 MG TAB PO PRN ×2 (13:44→21:24)
[2019-12-27] MEDS ORDERED: ARIPIPRAZOLE FS SCH (13:45)
[2019-12-27 14:09] LABS: Bacteria/HPF None Seen HPF (None Seen); Bilirubin Negative (Negative); Blood, Urine Negative (Negative); Clarity Clear (Clear); Glucose, Urine (Dipstick) Normal (Negative); Ketone, Urine Negative (Negative); Leukocyte Negative Leu/uL (Negative); Nitrite Negative (Negative); Protein, Urine (Dipstick) Negative (Neg-Trace); RBC/HPF 0-3 HPF (0-3); Specific Gravity, Urine 1.018 (1.002-1.036); Squamous Epithelial 0-3 HPF (0-3); Urobilinogen Normal mg/dL (Less than 2); WBC/HPF 0-3 HPF (0-3)
[2019-12-27 14:11] LABS: Urine Culture Reflex No No
[2019-12-27 15:06] LABS: SARS-CoV-2 MS2 Positive; SARS-CoV-2 N Gene Negative; SARS-CoV-2 S Gene Negative; SARS-CoV-2 by NAA Not Detected (NotDetected); SARS-CoV-2 orf1ab Negative
[2019-12-27] MEDS: cefTRIAXone\\ROCEPHIN 1 GM in Sodium Chloride 0.9% 100 ML IVPB SCH (21:17)
[2019-12-28] MEDS: Acetaminophen 325 MG TAB PO PRN ×2 (04:46→15:46)
[2019-12-28 05:53] LABS: #Monocytes 0.4 thou/uL (0.11-0.59); #Neutrophils 3.1 thou/uL (1.40-6.50); %Basophils 0.4 % (0.0-1.0); %Eosinophils 0.7 % (0.0-10.0); %Lymphocytes 36.6 % (21.0-51.0); %Monocytes 6.6 % (0.0-10.0); %Neutrophils 55.8 % (42.0-75.0); Hemoglobin 11.9 g/dL (12.0-16.0); Mean Corpuscular HGB CONC 33.1 g/dL (32.0-36.0); Mean Corpuscular Hemoglobin 27.7 pg (27.0-31.0); Mean Corpuscular Volume 83.7 fL (78.0-98.0); Mean Platelet Volume 7.4 fL (7.4-10.4); Platelet Count 275 thou/uL (130-400); White Blood Cell (WBC) Count 5.5 thou/uL (4.8-10.8)
[2019-12-28 06:13] LABS: Anion Gap 12 mmol/L (10-20); BUN (Urea Nitrogen) 7 mg/dL (7.0-18.7); Calc. Creatinine Clearance 147 mL/min (70-130); Calcium 8.2 mg/dL (7.8-10.44); Carbon Dioxide 21 mmol/L (22-29); Chloride 104 mmol/L (98-107); Estimated GFR-MDRD Greater than 90; Glucose 102 mg/dL (70-105); Magnesium 1.7 mg/dL (1.6-2.6); Potassium 4.1 mmol/L (3.5-5.1); Sodium 133 mmol/L (136-145)
--- NOTE | 2019-12-28 18:49 | PDOC.HOSPP ---
- Subjective Encounter Date: 12/28/19 Encounter Time: 12:30 Subjective: no ovenright events. this morning, feeling well, left flank pain resolved. has no complaints. - Objective Vital Signs & Weight: Vital Signs (12 hours) Temp Pulse Resp BP Pulse Ox 12/28/19 15:16 99.1 F 68 18 118/72 97 12/28/19 11:40 98.3 F 82 14 106/67 100 12/28/19 08:42 99 12/28/19 07:30 98.4 F 79 16 116/81 99 Weight Weight 190 lb 6.4 oz I&O: 12/27/19 12/28/19 12/29/19 06:59 06:59 06:59 Intake Total 465 3140 880 Balance 465 3140 880 Result Diagrams: 12/28/19 05:27 12/28/19 05:27 Hospitalist ROS - Review of Systems Constitutional: denies: chills, sweats Respiratory: denies: cough, shortness of breath Cardiovascular: denies: chest pain, palpitations, orthopnea Gastrointestinal: denies: nausea, vomiting, abdominal pain Genitourinary: denies: dysuria, frequency, hematuria - Medication Medications: Active Medications Generic Name Dose Route Start Last Admin Trade Name Freq PRN Reason Stop Dose Admin Acetaminophen 650 mg 12/27/19 13:26 12/28/19 15:46 Acetaminophen 325 Mg Tab PO 650 mg Q4H PRN Administration Headache/Fever or Pain Ceftriaxone Sodium 1 gm/ 100 mls @ 200 mls/hr 12/27/19 22:00 12/27/19 21:17 Sodium Chloride IVPB 100 mls 2200 SAMANTHA Administration - Exam General Appearance: NAD, awake alert Neck: no JVD Heart: RRR, no murmur, no gallops, no rubs Respiratory: CTAB, no wheezes, no rales, no ronchi Gastrointestinal: soft, non-tender, non-distended, normal bowel sounds Extremities: no edema Psychiatric: normal affect, normal behavior, A&O x 3 Hosp A/P - Plan Pyelonephritis: 24F with hx of recurrent UTIs/pyelonephritis and congenital single kidney presents with fever, CVA tenderness, and increased urinary frequency. UA positive. Started on IV ceftriaxone and IV vancomycin. BUN/Cr 11/0.81. Will obtain renal US to make r/o complications. Urine sample contaminated; repeat negative for bacteriuria or pyuria continue ceftriaxone DVT Prophylaxis: SCDs FULL CODE ELOS: 1 night
[2019-12-28] MEDS: cefTRIAXone\\ROCEPHIN 1 GM in Sodium Chloride 0.9% 100 ML IVPB SCH (20:45)
[2019-12-29] MEDS: Acetaminophen 325 MG TAB PO PRN (03:25)
[2019-12-29 05:27] LABS: #Basophils 0.1 thou/uL (0.0-0.2); #Lymphocytes 1.7 thou/uL (1.20-3.40); #Monocytes 0.3 thou/uL (0.11-0.59); #Neutrophils 2.1 thou/uL (1.40-6.50); %Basophils 1.8 % (0.0-1.0); %Eosinophils 0.3 % (0.0-10.0); %Lymphocytes 40.4 % (21.0-51.0); %Monocytes 7.4 % (0.0-10.0); %Neutrophils 50.2 % (42.0-75.0); Hemoglobin 12.3 g/dL (12.0-16.0); Mean Corpuscular HGB CONC 32.8 g/dL (32.0-36.0); Mean Corpuscular Hemoglobin 26.9 pg (27.0-31.0); Mean Platelet Volume 6.5 fL (7.4-10.4); Platelet Count 327 thou/uL (130-400); RBC Distribution Width 11.7 % (11.5-14.5); Red Blood Cell (RBC) Count 4.58 mill/uL (4.20-5.40); White Blood Cell (WBC) Count 4.1 thou/uL (4.8-10.8)
[2019-12-29 10:36] LABS: Bacteria/HPF None Seen HPF (None Seen); Bilirubin Negative (Negative); Blood, Urine Negative (Negative); Clarity Clear (Clear); Glucose, Urine (Dipstick) Normal (Negative); Ketone, Urine Negative (Negative); Leukocyte Negative Leu/uL (Negative); Nitrite Negative (Negative); Protein, Urine (Dipstick) Negative (Neg-Trace); RBC/HPF 0-3 HPF (0-3); Specific Gravity, Urine 1.008 (1.002-1.036); Squamous Epithelial 0-3 HPF (0-3); Urobilinogen Normal mg/dL (Less than 2)
[2019-12-29 10:39] LABS: Urine Culture Reflex Yes Yes
[2019-12-29 11:09] VITALS: BP 109/75; TEMP 97.6
--- NOTE | 2019-12-30 02:04 | DIS ---
DATE OF ADMISSION: 12/27/2019 DATE OF DISCHARGE: 12/29/2019 HOSPITAL COURSE: Ms. Alcantar is a 24-year-old female with a medical history of congenital single kidney, bipolar disorder and hypertension, who presented with fever, chills, and increased urinary frequency, flank pain. She was diagnosed with pyelonephritis. The patient was started on ceftriaxone and responded promptly to antibiotics. Urinalysis was contaminated and repeat urinalysis was negative, so outpatient antibiotics were tailored based on response to ceftriaxone. She was discharged on cefdinir for a total duration of 10 days of antibiotics. PHYSICAL EXAMINATION: VITAL SIGNS: Blood pressure 104/69, pulse 78, respiratory rate 16, oxygen saturation 100% on room air, temperature 97.9. GENERAL: Awake and alert, lying comfortably in bed. HEENT: Normocephalic, atraumatic. CARDIAC: Regular rate and rhythm. No murmurs, gallops, or rubs. LUNGS: Clear to auscultation bilaterally. No wheezing, rales or rhonchi. GI: Soft, nontender, nondistended. Normal bowel sounds. No flank pain (improved compared to left flank pain on admission). PSYCHIATRIC: Proper mood and affect. Alert and oriented x3. MEDICATION LIST: New medications: Cefdinir 300 mg b.i.d. for 7 additional days. Continued medications: Aripiprazole 300 mg subcu q.30 days. FOLLOWUP: The patient was scheduled with her primary care physician to follow up on pyelonephritis. Job ID: [id number]
--- NOTE | 2019-12-30 05:32 | PQF ---
Dear : Gustabo Anderson Date 12/28/19 Please exercise your independent, professional judgment in responding to the clarification form. Clinical indicators are provided on the bottom of this form for your review Can you please further clarify if Sepsis is ruled in or ruled out? Sepsis [ ] Ruled in diagnosis [ ] Continue to treat [ ] Resolved [ x ] Ruled out diagnosis [ ] Improving [ ] Cannot rule out diagnosis [ ] Other diagnosis please specify [ ] Unable to determine Physician Signature: Date/Time: For continuity of documentation, please document condition throughout progress notes and discharge summary. Thank You. To be completed by CDI/Coding staff for physician review: Present Clinical Indicators - Signs / Symptoms / Labs Results and Location in Medical Record [ x ] Frequency with urination, fever ED Provider pg.1 [ x ] VS: BP: 119/60, Pulse 92, RR 24, Temp 100.8 ED Provider pg.2 [ x ] Sepsis ED Provider pg.3 [ x ] Lactic acid 0.7 H and P pg.1 [ x ] Meeting SIRS criteria H and P pg.4 [ x ] Sepsis without septic shock H and P pg.4 [ x ] Presented with fever, chills, and tachycardia H and P pg.4 [ x ] Urine sample contaminated, repeat negative for bacteriuria or pyuria Hospitalist PN pg.2 [ x ] Urinalysis negative DS pg.1 [ x ] Blood culture:no growth Collected 12/25 Present Risk Factors Results and Location in Medical Record [ x ] Pyelonephritis ED Provider pg.3 [ x ] Recurrent UTI H and P pg.2 Present Treatments Results and Location in Medical Record [ x ] Blood culture 12/25 [ x ] IV Fluids MAY [ x ] Vancomycin 1gm IV MAY [ x ] Rocephin 1gm IV JUN 05 CDS/Director Of Student Aid Signature: [email or web address] Phone #: ext [phone] Date: 12/30/19 This is a permanent part of the Medical Record [facility]
== END 2019-12-29 12:10 | disposition home or self-care (01) | DRG 690 ==
LOC: ERS 21:29 → SURG B 12-27 01:14
PROVIDERS: ADMIT Family Medicine; ATTEND Family Medicine
DX: N10 Acute pyelonephritis (principal); F31.9 Bipolar disorder, unspecified; I10 Essential (primary) hypertension; Z20.828 Contact with and (suspected) exposure to other viral communicable diseases; R35.0 Frequency of micturition; K21.9 Gastro-esophageal reflux disease without esophagitis; Z98.51 Tubal ligation status; Z90.49 Acquired absence of other specified parts of digestive tract
CPT/HCPCS: 36415; 76770; 80048; 80053; 81001; 81003; 81015; 81025; 83605; 83735; 85025; 87040; 87086; 87635; J0696; J2405; J3370; J3490; J7050; U0003